=== PATIENT | female | born 1985 | race Two or more races ===

== ENCOUNTER → 2022-01-12 13:30 | Outpatient (BNVA) | payer MEDICAID, SELFPAY | PROVIDERS: Family Provider Family Medicine; Visit Provider Obstetrics & Gynecology | DX: Z12.4 Encounter for screening for malignant neoplasm of cervix (principal) | CPT/HCPCS: 87624 ==

== ENCOUNTER → 2022-02-27 12:50 | Outpatient (BNVA) | payer MEDICAID, SELFPAY | PROVIDERS: Family Provider Family Medicine; Visit Provider Obstetrics & Gynecology | DX: R87.610 Atypical squamous cells of undetermined significance on cytologic smear of cervix (ASC-US) (principal); R87.810 Cervical high risk human papillomavirus (HPV) DNA test positive | CPT/HCPCS: 81025; 88305 ==

== ENCOUNTER 2022-05-07 12:16 | Outpatient (CLI) | payer MEDICAID, SELFPAY ==
[2022-05-07 12:58] LABS: Basophils % 0.8 %; Eosinophils # 0.1 10^3/uL (0.0-0.8); Eosinophils % 2.5 %; Hematocrit 34.1 % (37.0-47.0); Hemoglobin 10.9 g/dL (11.5-15.3); Lymphocytes # 2.1 10^3/uL (0.8-4.8); Lymphocytes % 42.7 %; Mean Corpuscular Hemoglobin 27.7 pg (28.0-34.0); Mean Corpuscular Volume 86.8 fl (81-99); Mean Platelet Volume 9.6 fL (7.4-10.4); Monocytes # 0.3 10^3/uL (0.2-0.9); Monocytes % 6.2 %; Neutrophils # 2.29 10^3/uL (1.8-7.7); Neutrophils % 47.6 %; Nucleated Red Blood Cells % 0 %; Platelet Count 360 10^3/cmm (130-400); Red Blood Count 3.93 10^6/uL (4.1-5.3); Red Cell Distribution Width 13.2 % (12.1-15.1); White Blood Count 4.8 10^3/uL (4.0-10.0)
[2022-05-07 13:12] LABS: Ferritin 11 ng/mL (15-150); Iron 69 ug/dL (37-145); Total Iron Binding Capacity 492 mcg/dl; Unsaturated Iron Binding 423 ug/dL (112-347)
== END 2022-05-07 12:17 | disposition home or self-care (01) ==
LOC: LAB 12:17
PROVIDERS: Visit Provider Obstetrics & Gynecology
DX: D64.9 Anemia, unspecified (principal)
CPT/HCPCS: 36415; 81025; 82728; 83540; 83550; 85025

== ENCOUNTER → 2022-05-16 15:58 | Outpatient (BNVA) | payer MEDICAID, SELFPAY | PROVIDERS: Visit Provider Emergency Medicine | DX: R50.9 Fever, unspecified (principal); J10.1 Influenza due to other identified influenza virus with other respiratory manifestations | CPT/HCPCS: 87400 ==

== ENCOUNTER 2022-08-16 07:00 | Emergency (ER) | payer MEDICAID, SELFPAY ==
[2022-08-16 07:05] VITALS: BP 168/101; PULSE 90; RESP 28; TEMP 37.1; O2SAT 100; BMI 29.6
--- NOTE | 2022-08-16 07:11 | ECG_ITS ---
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 Measurements Intervals [place] Rate: 82 P: 62 SC: 164 QRS: 32 QRSD: 102 T: 38 QT: 358 QTc: 420 Interpretive Statements SINUS RHYTHM POSSIBLE RIGHT VENTRICULAR CONDUCTION DELAY [RSR (QR) IN V1/V2] Compared to ECG 01/26/2017 11:25:27 No significant changes Electronically Signed On 08-16-2022 22:48:30 CDT by Barbara Springer M.D. [id number]
--- NOTE | 2022-08-16 07:17 | XR_ITS ---
WS: [id number] EXAMINATION: XR chest 1V portable [id number] REASON FOR EXAM: sob COMPARISON: 01/26/2017 ORDER DATE: 08/16/2022 7:19 AM TECHNIQUE: A single, portable frontal chest x-ray was obtained. X-RAY FINDINGS: The lungs are clear. Pleural spaces are clear. No pleural effusions or pneumothorax. Cardiomediastinal silhouette is normal. No evidence for pulmonary edema. Soft tissue and osseous structures are unremarkable. No tubes or lines are present. XR/XR chest 1V portable [id number] IMPRESSION: Unremarkable frontal portable chest x-ray.
--- NOTE | 2022-08-16 07:18 | W.ED.SOB ---
HPI - SOB/Dyspnea General: Chief Complaint: Shortness of Breath/Dyspnea Stated Complaint: sob Time Seen by Provider: 08/16/22 07:10 History of Present Illness: HPI Narrative: Patient is a 37-year-old female comes to the ED with shortness of breath. Symptoms started yesterday evening while at work. She was having some nasal congestion and drainage yesterday and the shortness of breath started in the evening. Patient feels like she cannot catch her breath. Her face started feeling a little tingly this morning. She denies any current chest pain. Denies any history of asthma, anxiety or panic attacks. Patient did state that she is always a little stressed. Denies any cough, fevers, nausea/vomiting or bladder symptoms. She endorses having some diarrhea over the past 2 days. Associated symptoms: Deny abdominal pain, chest pain, fever(s), nausea, orthopnea, palpitations or vomiting Review of Systems Const: Denies: fever(s), chills or fatigue Eyes: Denies: change in vision or eye discomfort ENMT: Reports: nasal discharge and nasal congestion; Denies: throat pain or odynophagia Card: Denies: chest pain, palpitations, edema, swelling of feet/ankles, dyspnea on exertion or orthopnea Resp: Reports: dyspnea; Denies: productive cough or non-productive cough GI: Denies: abdominal pain, nausea, vomiting, diarrhea, constipation or hematochezia : Denies: flank pain, dysuria or hematuria Musc: Denies: neck pain, back pain or extremity swelling Skin/Breast: Denies: rash or new lesions Neuro: Denies: headache(s), numbness in extremities or weakness in extremities PFS ED PFSH: Surgical History No pertinent past surgical history Family History Mother Hypertension Grandfather Hypertension maternal Stroke maternal Heart disease maternal Grandmother Breast cancer, Onset Age: 84 maternal Denies family history of Colon cancer Ovarian cancer Diabetes Clotting disorder Hyperlipidemia Anesthesia complication Bleeding disorder Uterine cancer Thyroid condition Social History Smoking and tobacco status: never smoked Quit status (tobacco): has quit using tobacco Year quit tobacco: 2019 Alcohol intake: never Physical Exam Const: COMMON NORMALS: patient oriented x3 and alert GENERAL APPEARANCE: cooperative, anxious and other (Patient is tearful) HENMT: COMMON NORMALS: normocephalic HEAD & SCALP: normocephalic MOUTH: Normal oral and palatal mucosa present THROAT: posterior oropharynx normal and uvula midline Neck/C-Spine: COMMON NORMALS: supple GENERAL: Yes normal visual inspection Resp: COMMON NORMALS: No retractions, No use of accessory muscles and clear to auscultation bilaterally EFFORT & INSPECTION: Yes tachypneic, No stridor, No Actively coughing and No audible wheezes AUSCULTATION: clear to auscultation bilaterally Cardio: COMMON NORMALS: regular rate, regular rhythm, S1 normal heart sound present, S2 normal heart sound present, No gallops present (Cardio), No clicks present (Cardio), No murmurs present (Cardio) and Peripheral pulses 2+ throughout RATE: regular rate RHYTHM: regular rhythm HEART SOUNDS: S1 normal heart sound present and S2 normal heart sound present PERIPHERAL PULSES: Peripheral pulses 2+ throughout GI: COMMON NORMALS: Normal to inspection, nondistended, normoactive bowel sounds present, Soft to palpation, non-tender and no masses PALPATION: Yes Soft to palpation : COMMON NORMALS: Yes no CVA tenderness BLADDER/KIDNEY EXAM: Yes no CVA tenderness Back/Pelvis: COMMON NORMALS: no CVA tenderness Extremity: COMMON NORMALS: normal to inspection Neuro: COMMON NORMALS: patient oriented x3 SENSORIUM/ORIENTATION: Yes alert GAIT: Yes Normal gait present Skin: GENERAL SKIN EXAM: dry skin Course Reevaluation(s): Reevaluation #1: I went back in to check on patient and to let her know about lab results. She told me now that her shortness of breath feels more like throat tightening. Denies any history of any food allergies or anaphylaxis. Time: 08:30 Vital Signs: Vital signs: Vital Signs Temperature 98.7 F 08/16/22 07:05 Pulse Rate 96 08/16/22 10:45 Respiratory Rate 16 08/16/22 10:45 Blood Pressure 143/81 08/16/22 10:45 Pulse Oximetry 99 08/16/22 10:45 Oxygen Delivery Me thod 08/16/22 09:13 MDM - SOB/Dyspnea Medical Decision Making Patient is a 37-year-old female comes to the ED with shortness of breath. Symptoms started yesterday evening while at work. She was having some nasal congestion and drainage yesterday and the shortness of breath started in the evening. Patient feels like she cannot catch her breath. Respirations 28/min but rest of her vitals are stable on heart rate 90 and O2 sat 100% on room air. Patient appears to be hyperventilating. Her lungs are clear to auscultation bilaterally and rest of her exam is benign. Labs are all unremarkable. Troponin negative. EKG showed normal sinus rhythm with no ST segment elevation or depression seen. I went in to speak with patient about lab results and chest x-ray and she informed me that her shortness of breath is more of a throat tightening feeling. Patient was given IM Solu-Medrol, Benadryl and epi. Throat tightening improved. Patient was stable for discharge home. Patient's dyspnea is likely due to seasonal allergies versus allergic reaction. She was sent home with a prescription for prednisone and told to follow-up with her PCP in the next week for reevaluation. Return ED precautions given. Patient understood and agreed with plan. Lab Data I reviewed the patient's lab results. 08/16/22 07:39 08/16/22 07:39 Labs/Radiology: Radiology Impressions Chest X-Ray 08/16/22 07:17 IMPRESSION: Unremarkable frontal portable chest x-ray. Laboratory Results WBC 4.5 10^3/uL (4.0-10.0) 08/16/22 07:39 RBC 4.00 10^6/uL (4.1-5.3) L 08/16/22 07:39 Hgb 11.6 g/dL (11.5-15.3) 08/16/22 07:39 Hct 35.0 % (37.0-47.0) L 08/16/22 07:39 MCV 87.5 fl (81-99) 08/16/22 07:39 MCH 29.0 pg (28.0-34.0) 08/16/22 07:39 MCHC 33.1 g/dL (30.0-36.0) 08/16/22 07:39 RDW 12.7 % (12.1-15.1) 08/16/22 07:39 Plt Count 368 10^3/cmm (130-400) 08/16/22 07:39 MPV 9.1 fL (7.4-10.4) 08/16/22 07:39 Neut % (Auto) 50.7 % 08/16/22 07:39 Lymph % (Auto) 37.8 % 08/16/22 07:39 [place] % (Auto) 6.3 % 08/16/22 07:39 Eos % (Auto) 4.3 % 08/16/22 07:39 Baso % (Auto) 0.9 % 08/16/22 07:39 Neut # (Auto) 2.27 10^3/uL (1.8-7.7) 08/16/22 07:39 Lymph # (Auto) 1.7 10^3/uL (0.8-4.8) 08/16/22 07:39 [place] # (Auto) 0.3 10^3/uL (0.2-0.9) 08/16/22 07:39 Eos # (Auto) 0.2 10^3/uL (0.0-0.8) 08/16/22 07:39 Baso # (Auto) 0.0 10^3/uL (0.0-0.1) 08/16/22 07:39 Nucleated RBC % (auto) 0 % 08/16/22 07:39 Nucleated RBCs # 0.0 /100WBC 08/16/22 07:39 Sodium 141 mmol/L (136-145) 08/16/22 07:39 Potassium 4.0 mmol/L (3.5-5.1) 08/16/22 07:39 Chloride 105 mmol/L (98-107) 08/16/22 07:39 Carbon Dioxide 24 mmol/L (22-29) 08/16/22 07:39 Anion Gap 16.0 (5-19) 08/16/22 07:39 BUN 9 mg/dL (6-20) 08/16/22 07:39 Creatinine 0.8 mg/dL (0.5-0.9) 08/16/22 07:39 GFR Calculation 97.7 mL/min (90-130) 08/16/22 07:39 Glucose 89 mg/dL (65-115) 08/16/22 07:39 Calculated Osmolality 290 mOsm/kg (285-295) 08/16/22 07:39 Calcium 9.3 mg/dL (8.5-10.5) 08/16/22 07:39 Total Bilirubin 0.4 mg/dL (0.15-1.2) 08/16/22 07:39 AST 14 U/L (0-32) 08/16/22 07:39 ALT 9 U/L (0-33) 08/16/22 07:39 Alkaline Phosphatase 64 U/L (35-105) 08/16/22 07:39 Troponin T Baseline 6 ng/L (0-10) 08/16/22 07:39 Troponin T 120 Minute 6.00 ng/L (0-10) 08/16/22 09:52 Delta Troponin T 0 ABS# (0-10) 08/16/22 09:52 Total Protein 7.2 g/dL (6.6-8.7) 08/16/22 07:39 Albumin 4.2 g/dL (3.5-5.2) 08/16/22 07:39 Globulin 3.0 g/dL (1.3-4.6) 08/16/22 07:39 HCG, Qual Negative (Negative) 08/16/22 07:39 Influenza Type A Ag negative (Negative) 08/16/22 07:32 Influenza Type B Ag negative (Negative) 08/16/22 07:32 SARS-CoV-2 Ag (Rapid) negative (Negative) 08/16/22 07:32 EKG Data EKG 1: EKG Interpretation Date: 08/16/22 Interpretation: Sinus rhythm, 82 bpm, no ST segment elevation or depression seen. Discharge Plan Discharge Patient Disposition: Home Clinical Impression: Dyspnea Qualifiers: Dyspnea type: unspecified Qualified Code(s): R06.00 - Dyspnea, unspecified Condition: Stable Prescriptions: New prednisone 20 mg tablet 20 mg PO BID 3 Days Qty: 6 0RF No Action Nexplanon 68 mg implant See Rx Instructions .ROUTE .COMPLEX Rx Instructions: subdermally as directed ibuprofen 600 mg tablet 600 mg PO Q8H PRN (Reason: pain) Qty: 30 0RF ciclopirox 0.77 % cream 1 applic topical BID 28 Days Qty: 30 0RF fluticasone propionate [Flonase Allergy Relief] 50 mcg/actuation spray,suspension 1 spray intranasal BID Qty: 16 0RF Rx Instructions: administer into each nostril iron 325 mg (65 mg iron) Tablet 325 mg PO DAILY Discharge Orders: Discharge ED (Routine); Ordered 08/16/22 Ordered By: Jae Mohan Referrals: Shawn Sutherland MD [Primary Care Provider] - Discharge Diet: Regular Discharge Activity: Increase activity as tolerated Activity Restrictions/Additional Instructions: Follow-up with medical provider as directed in the next 3 to 5 days for reevaluation. Take medications as prescribed. You can start taking your prescribed prednisone tomorrow since she received steroid shot here in the ED today. Return to the ER or your medical provider if condition worsens. Please read and understand discharge instructions. Thank you for choosing [facility] for your healthcare needs today. Please realize this is an emergency room and that we are providing you with a medical screening exam and this may not be complete and all inclusive of all the testing and or work up that you may need to determine your ailment or severity of your illness. It is very important that you follow up as instructed or that you return to the Emergency Department should you have concerns or if your condition changes or worsens in any way. Coding Level of Care Code ED Self Contained Behavior Unit Teacher for Andrae Gonzalez
[2022-08-16] MEDS: ipratropium-albuterol 3 mL Neb INHALATION (07:31)
[2022-08-16 07:35] VITALS: PULSE 80; RESP 16; O2SAT 100
[2022-08-16 07:42] VITALS: PULSE 81; RESP 16; O2SAT 100
[2022-08-16 07:51] LABS: Basophils % 0.9 %; Eosinophils # 0.2 10^3/uL (0.0-0.8); Eosinophils % 4.3 %; Hemoglobin 11.6 g/dL (11.5-15.3); Lymphocytes # 1.7 10^3/uL (0.8-4.8); Lymphocytes % 37.8 %; Mean Corpuscular HGB Conc 33.1 g/dL (30.0-36.0); Mean Corpuscular Volume 87.5 fl (81-99); Mean Platelet Volume 9.1 fL (7.4-10.4); Monocytes # 0.3 10^3/uL (0.2-0.9); Monocytes % 6.3 %; Neutrophils # 2.27 10^3/uL (1.8-7.7); Neutrophils % 50.7 %; Nucleated Red Blood Cells % 0 %; Platelet Count 368 10^3/cmm (130-400); Red Cell Distribution Width 12.7 % (12.1-15.1); White Blood Count 4.5 10^3/uL (4.0-10.0)
[2022-08-16 08:11] LABS: Troponin(5th) Baseline 6 ng/L (0-10)
[2022-08-16 08:12] LABS: Alanine Aminotransferase 9 U/L (0-33); Albumin Level 4.2 g/dL (3.5-5.2); Alkaline Phosphatase 64 U/L (35-105); Aspartate Amino Transferase 14 U/L (0-32); Blood Urea Nitrogen 9 mg/dL (6-20); Calcium 9.3 mg/dL (8.5-10.5); Carbon Dioxide 24 mmol/L (22-29); Chloride 105 mmol/L (98-107); Glomerular Filtration Rate 97.7 mL/min (90-130); Glucose 89 mg/dL (65-115); Osmolality Calculated 290 mOsm/kg (285-295); Sodium 141 mmol/L (136-145); Total Bilirubin 0.4 mg/dL (0.15-1.2); Total Protein 7.2 g/dL (6.6-8.7)
[2022-08-16 08:12] LABS: Influenza A by IFA negative (Negative); Influenza B by IFA negative (Negative); SARS Covid-2 Antigen negative (Negative)
[2022-08-16 08:15] LABS: HCG, Serum Qual Negative (Negative)
[2022-08-16 09:13] VITALS: BP 165/83; PULSE 85; O2SAT 100
[2022-08-16] MEDS: diphenhydrAMINE 25 mg Capsule PO (09:13)
--- NOTE | 2022-08-16 09:20 | ECG_ITS ---
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 Measurements Intervals [place] Rate: 70 P: 63 CT: 166 QRS: 33 QRSD: 102 T: 34 QT: 366 QTc: 397 Interpretive Statements SINUS RHYTHM POSSIBLE RIGHT VENTRICULAR CONDUCTION DELAY [RSR (QR) IN V1/V2] Compared to ECG 08/16/2022 07:11:08 No significant changes Electronically Signed On 08-17-2022 23:07:36 CDT by Barbara Springer M.D. [id number]
[2022-08-16] MEDS: EPINEPHrine 1 mg/mL INJ 0.3 MG IM (10:01)
[2022-08-16 10:22] LABS: Troponin 5 2HR Delta 0 ABS# (0-10)
[2022-08-16 10:30] VITALS: BP 143/81; PULSE 96; RESP 16; O2SAT 99
[2022-08-16 10:45] VITALS: BP 143/81; PULSE 96; RESP 16; O2SAT 99
== END 2022-08-16 10:46 | disposition home or self-care (01) ==
PROVIDERS: Emergency Provider Physician Assistant; PCP Obstetrics & Gynecology
DX: R06.00 Dyspnea, unspecified (principal)
CPT/HCPCS: 36415; 71045; 80053; 84484; 84703; 85025; 87426; 87804; 93005; 94640; 96372; 99285; J0171; J2930

== ENCOUNTER → 2022-09-27 08:20 | Outpatient (BNVA) | payer MEDICAID, SELFPAY | PROVIDERS: PCP Family Medicine Adult Medicine; Visit Provider Family Medicine Adult Medicine | DX: R68.89 Other general symptoms and signs (principal); J30.9 Allergic rhinitis, unspecified; R03.0 Elevated blood-pressure reading, without diagnosis of hypertension; Z68.30 Body mass index [BMI] 30.0-30.9, adult | CPT/HCPCS: 84443 ==

== ENCOUNTER → 2022-11-14 13:46 | Outpatient (BNVA) | payer MEDICAID, SELFPAY | PROVIDERS: PCP Family Medicine Adult Medicine; Visit Provider Family Medicine Adult Medicine | DX: E03.9 Hypothyroidism, unspecified (principal) | CPT/HCPCS: 84443 ==

== ENCOUNTER → 2023-02-15 13:09 | Outpatient (BNVA) | payer MEDICAID, SELFPAY | PROVIDERS: PCP Family Medicine Adult Medicine; Visit Provider Family Medicine Adult Medicine | DX: E03.9 Hypothyroidism, unspecified (principal); I10 Essential (primary) hypertension | CPT/HCPCS: 84443 ==

== ENCOUNTER → 2023-03-14 10:00 | Outpatient (BNVA) | payer MEDICAID, SELFPAY | PROVIDERS: PCP Family Medicine Adult Medicine; Visit Provider Obstetrics & Gynecology | DX: Z12.4 Encounter for screening for malignant neoplasm of cervix (principal) | CPT/HCPCS: 87624 ==

== ENCOUNTER → 2023-03-28 07:24 | Outpatient (BNVA) | payer MEDICAID, SELFPAY | PROVIDERS: PCP Family Medicine Adult Medicine; Visit Provider Nurse Practitioner Family | DX: R09.89 Other specified symptoms and signs involving the circulatory and respiratory systems (principal) | CPT/HCPCS: 87426 ==

== ENCOUNTER → 2023-04-17 12:53 | Outpatient (BNVA) | payer MEDICAID, SELFPAY | PROVIDERS: PCP Family Medicine Adult Medicine; Visit Provider Emergency Medicine | DX: J06.9 Acute upper respiratory infection, unspecified (principal); R51.9 Headache, unspecified; G43.909 Migraine, unspecified, not intractable, without status migrainosus | CPT/HCPCS: 87426 ==

== ENCOUNTER → 2023-11-08 13:16 | Outpatient (BNVA) | payer MEDICAID, SELFPAY | PROVIDERS: PCP Family Medicine Adult Medicine; Visit Provider Family Medicine Adult Medicine | DX: E03.9 Hypothyroidism, unspecified (principal); Z68.30 Body mass index [BMI] 30.0-30.9, adult; I10 Essential (primary) hypertension | CPT/HCPCS: 80048; 84443 ==

== ENCOUNTER → 2023-11-20 15:26 | Outpatient (BNVA) | payer MEDICAID, SELFPAY | PROVIDERS: PCP Family Medicine Adult Medicine; Visit Provider Registered Nurse Neonatal Intensive Care | DX: M54.9 Dorsalgia, unspecified (principal); R52 Pain, unspecified; M54.50 Low back pain, unspecified | CPT/HCPCS: 72100; J1885 ==

== ENCOUNTER 2023-12-18 10:12 | Emergency (ER) | payer MEDICAID, SELFPAY ==
[2023-12-18 10:19] VITALS: BP 141/93; PULSE 87; RESP 24; TEMP 36.7; O2SAT 100
--- NOTE | 2023-12-18 10:40 | XR_ITS ---
WS: [id number] PORTABLE CHEST HISTORY: cp COMPARISON: 08/16/2022 Lungs are clear and well expanded. No pleural effusion or pneumothorax. Cardiac size: Normal. Mediastinum/Aorta: Normal mediastinum. No osseous abnormality seen. XR/XR chest 1V portable [id number] IMPRESSION: Unremarkable portable chest.
--- NOTE | 2023-12-18 10:40 | ECG_ITS ---
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 Measurements Intervals [place] Rate: 73 P: 146 NM: 160 QRS: 3 QRSD: 101 T: 0 QT: 361 QTc: 400 Interpretive Statements SINUS RHYTHM POSSIBLE LEFT ATRIAL ENLARGEMENT [-0.1mV P-WAVE IN V1/V2] INCOMPLETE RIGHT BUNDLE BRANCH BLOCK [90+ ms QRS DURATION, TERMINAL R IN V1/V2, 40+ ms S IN I/aVL/V4/V5/V6] POSSIBLE ANTERIOR MYOCARDIAL INFARCTION , PROBABLY OLD [30 ms Q WAVE IN V3/V4, OR R < 0.2 mV IN V4] Compared to ECG 06/13/2023 00:21:27 Incomplete right bundle-branch block now present Myocardial infarct finding now present Electronically Signed On 12-18-2023 15:56:54 CDT by Drew Iyer M.D. [id number]
--- NOTE | 2023-12-18 10:46 | ED_ITS ---
HPI - Extremity Problem 2 General: Chief complaint: Extremity Injury, Upper Stated complaint: left arm pain Time Seen by Provider: 12/18/23 10:25 Source: patient Mode of arrival: ambulatory Limitations: no limitations History of Present Illness: 38-year-old female states she woke this morning and she is having severe left- sided shoulder pain that radiated down her arm states it is worse with palpation and movement. She does not remember any injury states she did well bleeding yesterday. States she had some pain going across her chest as well she denies any cough or fever. Associated symptoms: Reports chest pain; Deny fever(s) or rash Review of Systems 2 Const: Denies: fever(s), chills, body aches or change in appetite ENMT: Denies: throat pain or dental pain Card: Reports: chest pain Resp: Denies: dyspnea GI: Denies: abdominal pain, nausea, vomiting or diarrhea Musc: Reports: neck pain and extremity pain; Denies: back pain Skin/Breast: Denies: rash Neuro: Denies: headache(s) PFSH ED 2 PFSH: Medical History Fatigue due to depression Breakthrough bleeding on Nexplanon Hypertension Hypothyroidism (acquired) BMI 30.0-30.9,adult Asthma due to seasonal allergies Allergic rhinitis due to allergen Surgical History No history of previous surgery No pertinent past surgical history Family History Mother Hypertension Grandfather Hypertension maternal Stroke maternal Heart disease maternal Grandmother Breast cancer, Onset Age: 84 maternal Denies family history of Colon cancer Ovarian cancer Diabetes Clotting disorder Hyperlipidemia Anesthesia complication Bleeding disorder Uterine cancer Thyroid disease Social History Smoking and tobacco/nicotine status: former use of tobacco/nicotine Quit status (tobacco/nicotine): has quit using Year quit tobacco: 2020 Alcohol intake: never Substance/Drug Use: never Physical Exam 2 Const: COMMON NORMALS: no acute distress, patient oriented x3 and healthy appearing HENMT: COMMON NORMALS: normocephalic and atraumatic HEAD & SCALP: n ormocephalic and atraumatic Neck/C-Spine: OTHER: Tenderness noted along left neck and shoulder no obvious deformities distal pulses sensation to left arm is normal Chest: COMMONS NORMALS: normal inspection of the chest and normal palpation of entire chest wall Resp: COMMON NORMALS: normal respiratory effort, No retractions, No use of accessory muscles and clear to auscultation bilaterally AUSCULTATION: clear to auscultation bilaterally Cardio: COMMON NORMALS: regular rate, regular rhythm and No murmurs present (Cardio) RATE: regular rate RHYTHM: regular rhythm Extremity: COMMON NORMALS: normal to inspection and full ROM Neuro: COMMON NORMALS: patient oriented x3, moves all extremities and no focal motor deficits Psych: COMMON NORMALS: mental status grossly normal, Normal thought process present and cooperative THOUGHT PROCESS: Normal thought process present Skin: COMMON NORMALS: no rashes or lesions noted and no wounds GENERAL SKIN EXAM: no rashes or lesions noted Course 2 Vital Signs: Vital signs: Vital Signs Temperature 98.1 F 12/18/23 10:19 Pulse Rate 87 12/18/23 10:19 Respiratory Rate 24 H 12/18/23 10:19 Blood Pressure 141/93 12/18/23 10:19 Pulse Oximetry 100 12/18/23 10:19 MDM - Extremity (Nontraumatic) Medical Decision Making Patient presents here with left neck pain is likely muscle strain from weed eating her exam here is benign blood work EKG x-ray is normal she has no signs of carotid dissection. She feels improved here she stable for discharge follow- up with her PCP return if worsening. Medical Records I reviewed the patient's medical records. Lab Data I reviewed the patient's lab results. 12/18/23 11:03 12/18/23 11:03 Radiology Impressions Chest X-Ray 12/18/23 10:40 IMPRESSION: Unremarkable portable chest. Shoulder X-Ray 12/18/23 10:46 IMPRESSION: Normal LEFT shoulder. Laboratory Results WBC 5.13 10^3/uL (3.29-11.43) 12/18/23 11:03 RBC 3.85 10^6/uL (3.85-5.65) 12/18/23 11:03 Hgb 10.70 g/dL (11.27-16.99) L 12/18/23 11:03 Hct 33.0 % (36-47) L 12/18/23 11:03 MCV 85.7 fl (85-98) 12/18/23 11:03 MCH 27.8 pg (27-33) 12/18/23 11:03 MCHC 32.4 g/dL (30-55) 12/18/23 11:03 RDW 12.6 % (12.1-15.1) 12/18/23 11:03 Plt Count 393 10^3/cmm (157-399) 12/18/23 11:03 MPV 9.2 fL (7.4-10.4) 12/18/23 11:03 Neut % (Auto) 50.8 % 12/18/23 11:03 Lymph % (Auto) 39.4 % 12/18/23 11:03 [place] % (Auto) 7.0 % 12/18/23 11:03 Eos % (Auto) 1.6 % 12/18/23 11:03 Baso % (Auto) 1.0 % 12/18/23 11:03 Neut # (Auto) 2.61 10^3/uL (1.8-7.7) 12/18/23 11:03 Lymph # (Auto) 2.0 10^3/uL (0.8-4.8) 12/18/23 11:03 [place] # (Auto) 0.4 10^3/uL (0.2-0.9) 12/18/23 11:03 Eos # (Auto) 0.1 10^3/uL (0.0-0.8) 12/18/23 11:03 Baso # (Auto) 0.1 10^3/uL (0.0-0.1) 12/18/23 11:03 Nucleated RBC % (auto) 0 % 12/18/23 11:03 Nucleated RBCs # 0.0 /100WBC 12/18/23 11:03 Sodium 138 mmol/L (136-145) 12/18/23 11:03 Potassium 4.3 mmol/L (3.5-5.1) 12/18/23 11:03 Chloride 102 mmol/L (98-107) 12/18/23 11:03 Carbon Dioxide 24 mmol/L (22-29) 12/18/23 11:03 Anion Gap 16.3 (5-19) 12/18/23 11:03 BUN 9 mg/dL (6-20) 12/18/23 11:03 Creatinine 0.8 mg/dL (0.5-0.9) 12/18/23 11:03 GFR Calculation 80.3 mL/min (90-130) L 12/18/23 11:03 Glucose 88 mg/dL (65-115) 12/18/23 11:03 Calculated Osmolality 284 mOsm/kg (285-295) L 12/18/23 11:03 Calcium 8.9 mg/dL (8.5-10.5) 12/18/23 11:03 Total Bilirubin 0.4 mg/dL (0.15-1.2) 12/18/23 11:03 AST 13 U/L (0-32) 12/18/23 11:03 ALT 9 U/L (0-33) 12/18/23 11:03 Alkaline Phosphatase 80 U/L (35-105) 12/18/23 11:03 Troponin T Baseline < 6 ng/L (0-10) 12/18/23 11:03 Total Protein 7.2 g/dL (6.6-8.7) 12/18/23 11:03 Albumin 4.2 g/dL (3.5-5.2) 12/18/23 11:03 Globulin 3.0 g/dL (1.3-4.6) 12/18/23 11:03 All radiology interpretation(s) finalized by discharge Discharge Plan Discharge Patient Disposition: Home Clinical Impression: Neck pain on left side Condition: Stable Prescriptions: New hydrocodone-acetaminophen 5-325 mg tablet 1 tab PO Q6H PRN (Reason: pain) Qty: 14 0RF methocarbamol 750 mg tablet 750 mg PO Q6H PRN (Reason: spasms) Qty: 20 0RF Naprosyn 500 mg tablet 500 mg PO BID PRN (Reason: pain) Qty: 20 0RF No Action azelastine 137 mcg (0.1 %) aerosol,spray 1 spray intranasal BID Rx Instructions: administer into each nostril clonidine HCl 0.1 mg tablet 0.1 mg PO .q 12 hr PRN (Reason: hypertensive emergency) Qty: 30 1RF Rx Instructions: for high blood pressure/SCHMITT sys >160 lisinopril-hydrochlorothiazide 10-12.5 mg tablet 1 tab PO DAILY Qty: 30 5RF cyclobenzaprine 5 mg tablet 5 mg PO TID PRN (Reason: muscle spasm) Qty: 15 0RF diphenhydramine HCl 25 mg capsule 25 mg PO .q hs PRN (Reason: allergy symptoms) Qty: 30 3RF Rx Instructions: Can also take every 6 hrs through the day for wheezing or allergy symptoms. ondansetron 8 mg tablet,disintegrating 8 mg PO Q8H PRN (Reason: nausea and vomiting) 5 Days Qty: 15 0RF ibuprofen 800 mg tablet 800 mg PO TID Qty: 90 0RF levothyroxine 25 mcg tablet 25 mcg PO DAILY Qty: 90 1RF Rx Instructions: Take one tablet 1 hour before breakfast or other medications. albuterol sulfate [Ventolin HFA] 90 mcg/actuation HFA aerosol inhaler See Rx Instructions .ROUTE .COMPLEX Qty: 18 0RF Dose Instruction: INHALE 2 PUFFS BY MOUTH EVERY 6 HOURS NEEDED FOR SHORTNESS OF BREATH AND FOR WHEEZING Rx Instructions: INHALE 2 PUFFS BY MOUTH EVERY 6 HOURS NEEDED FOR SHORTNESS OF BREATH AND FOR WHEEZING miconazole nitrate 2 % cream 1 applic topical BID Qty: 42.5 1RF fluticasone propionate 50 mcg/actuation spray,suspension See Rx Instructions .ROUTE .COMPLEX Qty: 16 0RF Dose Instruction: Use 1 spray(s) in each nostril twice daily Rx Instructions: Use 1 spray(s) in each nostril twice daily levocetirizine 5 mg tablet 5 mg PO DAILY Qty: 90 3RF norgestimate-ethinyl estradiol [Sprintec (28)] 0.25-35 mg-mcg tablet See Rx Instructions .ROUTE .COMPLEX Qty: 84 0RF Dose Instruction: Take 1 tablet by mouth once daily Rx Instructions: Take 1 tablet by mouth once daily bupropion HCl 150 mg tablet sustained-release 12 hr 150 mg PO QAM Qty: 30 1RF iron 325 mg (65 mg iron) Tablet 325 mg PO DAILY Discharge Orders: Discharge ED (Routine); Ordered 12/18/23 Ordered By: Tyshawn Cristina Referrals: Tomy Evans MD [Primary Care Provider] - 4-7 days Discharge Diet: Advance as tolerated Discharge Activity: Resume usual activity Patient Instructions: Cervical Strain (ED) Coding Level of Care Code ED Infectious Disease Technician for Chg Carlos
--- NOTE | 2023-12-18 10:46 | XR_ITS ---
WS: [id number] LEFT SHOULDER: 3 VIEW(S) TECHNIQUE: Internal and external rotation with Y view. HISTORY: pain COMPARISON: None available. No fracture or dislocation or soft tissue abnormality. Glenohumeral and AC joints are unremarkable. XR/XR shoulder LT min 2V* [id number] IMPRESSION: Normal LEFT shoulder.
[2023-12-18] MEDS: ondansetron 2 mg/ML SDV 2 mL 4 MG IVP (10:53)
[2023-12-18] MEDS: morphine 4 mg/mL SDV 1 mL IVP (10:55)
[2023-12-18 11:12] LABS: Basophils # 0.1 10^3/uL (0.0-0.1); Eosinophils # 0.1 10^3/uL (0.0-0.8); Eosinophils % 1.6 %; Lymphocytes % 39.4 %; Mean Corpuscular HGB Conc 32.4 g/dL (30-55); Mean Corpuscular Hemoglobin 27.8 pg (27-33); Mean Corpuscular Volume 85.7 fl (85-98); Mean Platelet Volume 9.2 fL (7.4-10.4); Monocytes # 0.4 10^3/uL (0.2-0.9); Neutrophils # 2.61 10^3/uL (1.8-7.7); Neutrophils % 50.8 %; Nucleated Red Blood Cells % 0 %; Platelet Count 393 10^3/cmm (157-399); Red Blood Count 3.85 10^6/uL (3.85-5.65); Red Cell Distribution Width 12.6 % (12.1-15.1); White Blood Count 5.13 10^3/uL (3.29-11.43)
[2023-12-18 11:27] LABS: Troponin(5th) Baseline < 6 ng/L (0-10)
[2023-12-18 11:29] LABS: Alanine Aminotransferase 9 U/L (0-33); Albumin Level 4.2 g/dL (3.5-5.2); Alkaline Phosphatase 80 U/L (35-105); Anion Gap 16.3 (5-19); Aspartate Amino Transferase 13 U/L (0-32); Blood Urea Nitrogen 9 mg/dL (6-20); Calcium 8.9 mg/dL (8.5-10.5); Carbon Dioxide 24 mmol/L (22-29); Chloride 102 mmol/L (98-107); Creatinine Clr Calc Pharmacy 110.4179; Glomerular Filtration Rate 80.3 mL/min (90-130); Glucose 88 mg/dL (65-115); Osmolality Calculated 284 mOsm/kg (285-295); Potassium 4.3 mmol/L (3.5-5.1); Sodium 138 mmol/L (136-145); Total Bilirubin 0.4 mg/dL (0.15-1.2); Total Protein 7.2 g/dL (6.6-8.7)
[2023-12-18] MEDS: LORazepam 2 mg/mL INJ 1 mL 0.5 MG IVP (11:31)
== END 2023-12-18 12:18 | disposition home or self-care (01) ==
PROVIDERS: Emergency Provider Emergency Medicine; PCP Family Medicine Adult Medicine
DX: M54.2 Cervicalgia (principal); Z87.891 Personal history of nicotine dependence; I10 Essential (primary) hypertension
CPT/HCPCS: 71045; 73030; 80053; 84484; 85025; 93005; 96374; 96375; 99285; J2060; J2270; J2405

== ENCOUNTER → 2024-09-09 10:22 | Outpatient (BNVA) | payer MEDICAID, SELFPAY | PROVIDERS: PCP Family Medicine Adult Medicine; Visit Provider Nurse Practitioner Women's Health | DX: Z87.42 Personal history of other diseases of the female genital tract (principal) | CPT/HCPCS: 87624 ==

== ENCOUNTER → 2024-11-02 15:28 | Outpatient (BNVA) | payer MEDICAID, SELFPAY | PROVIDERS: PCP Family Medicine Adult Medicine; Visit Provider Obstetrics & Gynecology | DX: R87.612 Low grade squamous intraepithelial lesion on cytologic smear of cervix (LGSIL) (principal) | CPT/HCPCS: 88305 ==

== ENCOUNTER 2024-12-17 17:44 | Emergency (ER) | payer MEDICAID, SELFPAY ==
--- NOTE | 2024-12-17 17:51 | ECG_ITS ---
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
[2024-12-17 17:53] VITALS: BP 119/78; PULSE 88; RESP 16; TEMP 36.7; O2SAT 99; BMI 31.3
--- NOTE | 2024-12-17 18:03 | XRR_ITS ---
PROCEDURE INFORMATION: Exam: XR Chest Exam date and time: 12/17/2024 7:29 PM Age: 39 years old Clinical indication: Pain; Chest pressure; Additional info: Cp TECHNIQUE: Imaging protocol: Radiologic exam of the chest. Views: 1 view. COMPARISON: CR XR chest 1V portable [id number] 12/18/2023 11:01 AM FINDINGS: Lungs: Lungs are clear. Pleural spaces: There is no pleural effusion or pneumothorax. Heart/Mediastinum: Cardiomediastinal contours are unremarkable. Bones/joints: Bones are unremarkable. XR/XR chest 1V portable [id number] IMPRESSION: No acute findings.
--- NOTE | 2024-12-17 18:22 | W.ED.CHESTPA ---
HPI - Chest Pain General: Chief Complaint: Chest Pain Stated Complaint: cp Time Seen by Provider: 12/17/24 18:01 History of Present Illness: Mary Pedro is a 39-year-old female who presents to the emergency department with complaints of intermittent chest pain and shortness of breath that started on Saturday. She describes the pain as sternal and heavy. It is only radiated 1 time and that was up into the left chest. She denies any syncope or near syncope Denies palpitations Denies fevers or chills Denies cough or congestion. She reports that the pain is not made worse or better by anything. It is not reproducible. Related Data Home Medications ?Medication ?Instructions ?Recorded ?Confirmed ferrous sulfate 325 mg (65 mg 325 mg PO DAILY 08/16/22 11/21/24 iron) tablet (iron) azelastine 137 mcg (0.1 %) nasal 1 spray intranasal BID 09/27/22 11/21/24 spray lisinopril 20 mg tablet 20 mg PO DAILY 09/09/24 11/21/24 ascorbic acid (vitamin C) 500 mg mg PO 09/15/24 11/21/24 capsule drospirenone 3 mg-estetrol 14.2 mg See Rx Instructions PO .COMPLEX 09/15/24 11/21/24 (28) tablet (Nextstellis) Previous Rx's ?Medication ?Instructions ?Recorded ondansetron 8 mg disintegrating 8 mg PO Q8H PRN nausea and 04/17/23 tablet vomiting 5 days #15 tabs Ventolin HFA 90 mcg/actuation See Rx Instructions .Route 07/31/23 aerosol inhaler (albuterol sulfate) .COMPLEX #18 grams levocetirizine 5 mg tablet 5 mg PO DAILY #90 tabs 10/30/23 hydrocodone 5 mg-acetaminophen 325 1 tab PO Q6H PRN pain #14 tabs 12/18/23 mg tablet naproxen 500 mg tablet (Naprosyn) 500 mg PO BID PRN pain #20 tabs 12/18/23 fluticasone propionate 50 See Rx Instructions .Route 07/02/24 mcg/actuation nasal .COMPLEX #16 grams spray,suspension levothyroxine 25 mcg tablet See Rx Instructions .Route 07/13/24 .COMPLEX #30 tabs drospirenone 3 mg-estetrol 14.2 mg See Rx Instructions PO .COMPLEX 09/09/24 (28) tablet (Nextstellis) #28 tabs estradiol 0.01% (0.1 mg/gram) 1 g vaginal DAILY #42.5 grams 09/09/24 vaginal cream Allergies Allergy/AdvReac Type Severity Reaction Status Date / Time grass pollen Allergy Intermediate rash, itch Verified 09/23/24 08:02 animal dander Allergy ALGY-Difficulty Verified 09/23/24 08:02 Breathing tree and shrub pollen Allergy ALGY-Difficulty Verified 09/23/24 08:02 Breathing Review of Systems General: Reports: 10 or more systems reviewed and unremarkable except in HPI and below PFSH ED PFSH: Medical History (Updated 12/17/24 @ 21:31 by KAPIL Doe) Atypical squamous cell changes of undetermined significance (ASCUS) on cervical cytology with positive high risk human papilloma virus (HPV) ASCUS, HPV E6/E7+ Hx of abnormal cervical Pap smear LSIL, HPV E6/E7+ ; did not get colposcopy Fatigue due to depression Breakthrough bleeding on Nexplanon Hypertension Hypothyroidism (acquired) BMI 30.0-30.9,adult Asthma due to seasonal allergies Allergic rhinitis due to allergen Surgical History History of colposcopy PAP: ASCUS HPV E6/E7+, no malignancy or dysplasia No history of previous surgery No pertinent past surgical history Family History Mother Hypertension Grandfather Hypertension maternal Stroke maternal Heart disease maternal Grandmother Breast cancer, Onset Age: 84 maternal Denies family history of Colon cancer Ovarian cancer Diabetes Clotting disorder Hyperlipidemia Anesthesia complication Bleeding disorder Uterine cancer Thyroid disease Social History Smoking and tobacco/nicotine status: never used tobacco/nicotine Quit status (tobacco/nicotine): has quit using Year quit tobacco: 2020 Alcohol intake: never Substance/Drug Use: never Physical Exam Const: COMMON NORMALS: no acute distress, patient oriented x3 and alert GENERAL APPEARANCE: cooperative ORIENTATION/CONSCIOUSNESS: Yes awake, Yes oriented to person, Yes oriented to place and Yes oriented to time HENMT: COMMON NORMALS: normocephalic and atraumatic HEAD & SCALP: normocephalic and atraumatic FACE & SINUS: normal facial exam MOUTH: Normal oral and palatal mucosa present THROAT: posterior oropharynx normal Eye: COMMON NORMALS: Equal, round and reactive pupils present, EOMs intact bilaterally, conjunctivae normal and no scleral icterus GENERAL EYE: appearance normal, both eyes and all related structures ALIGNMENT: Yes alignment normal PERIORBITAL: periorbital findings normal CONJUNCTIVA: Yes conjunctivae normal PUPIL: Yes Equal, round and reactive pupils present Neck/C-Spine: COMMON NORMALS: full ROM GENERAL: Yes normal visual inspection Lymph: LYMPHATIC: no lymphadenopathy noted Chest: COMMONS NORMALS: normal inspection of the chest Breast/axilla inspection: Yes no chest deformity, asymmetry, normal contours, no nodules, masses, tenderness Resp: COMMON NORMALS: normal respiratory effort, No retractions, No use of accessory muscles and clear to auscultation bilaterally EFFORT & INSPECTION: Yes able to speak in complete sentences and Yes symmetric chest movement AUSCULTATION: clear to auscultation bilaterally Cardio: COMMON NORMALS: regular rate, regular rhythm and Peripheral pulses 2+ throughout RATE: regular rate RHYTHM: regular rhythm PERIPHERAL PULSES: Peripheral pulses 2+ throughout GI: COMMON NORMALS: Normal to inspection, nondistended, normoactive bowel sounds present, Soft to palpation, non-tender and No hepatosplenomegaly present INSPECTION: Yes normal to inspection AUSCULTATION: Yes normoactive bowel sounds PALPATION: Yes Soft to palpation and Yes No hepatosplenomegaly present RECTAL EXAM: deferred Extremity: COMMON NORMALS: normal to inspection GENERAL: Yes normal exam except as noted Neuro: COMMON NORMALS: patient oriented x3 SENSORIUM/ORIENTATION: Yes alert, Yes oriented to person, Yes oriented to place and Yes oriented to time CRANIAL NERVES: Yes CN normal except as noted Psych: COMMON NORMALS: mental status grossly normal, Normal thought process present, cooperative, activity/motor behavior normal, denies homicidal ideation and denies suicidal ideation THOUGHT PROCESS: Normal thought process present Skin: COMMON NORMALS: no rashes or lesions noted, no wounds and turgor normal GENERAL SKIN EXAM: no rashes or lesions noted and turgor normal Course Vital Signs: Vital signs: Vital Signs Temperature 98.0 F 12/17/24 17:53 Pulse Rate 78 12/17/24 19:19 Respiratory Rate 16 12/17/24 19:19 Blood Pressure 122/85 12/17/24 20:20 Pulse Oximetry 98 12/17/24 19:19 Oxygen Delivery Me thod Room Air 12/17/24 17:53 MDM - Chest Pain Medical Decision Making Mary Pedro is a 39-year-old female that presents to the emergency department with chest pain and shortness of breath. Onset of symptoms was Saturday. Heart score 1 point. This was for her hypertensive disease and obesity. She described it as sternal chest pain but does not radiate. She underwent laboratory evaluation included CBC, CMP, troponin series, BNP. Laboratory study was unremarkable. She underwent a chest x-ray which revealed no acute findings. She underwent EKGs that revealed sinus rhythm. Her initial EKG showed a sinus rhythm with a rate of 71 beats a minute and a QTc of 400. Subsequent EKG is unchanged. Patient had a long discussion about her hypertension and managing her symptoms. We also talked about other possible differentials that could have caused her symptoms. She is going to follow-up with her primary care doctor. She has a follow-up appointment tomorrow We have asked the correctional case records supervisor to assist in setting up a Holter monitor. Patient is agreeable with plan and all questions answered Lab Data 12/17/24 18:26 12/17/24 18:26 Radiology Impressions Chest X-Ray 12/17/24 18:03 IMPRESSION: No acute findings. Laboratory Results WBC 4.88 10^3/uL (3.29-11.43) 12/17/24 18: RBC 3.55 10^6/uL (3.85-5.65) L 12/17/24 18: Hgb 10.60 g/dL (11.27-16.99) L 12/17/24 18: Hct 31.9 % (36-47) L 12/17/24 18: MCV 89.9 fl (85-98) 12/17/24 18: MCH 29.9 pg (27-33) 12/17/24 18: MCHC 33.2 g/dL (30-55) 12/17/24 18: RDW 12.1 % (12.1-15.1) 12/17/24 18: Plt Count 426 10^3/cmm (157-399) H 12/17/24 18:26 MPV 9.2 fL (7.4-10.4) 12/17/24 18:26 Neut % (Auto) 39.8 % 12/17/24 18:26 Lymph % (Auto) 49.6 % 12/17/24 18:26 [place] % (Auto) 8.2 % 12/17/24 18:26 Eos % (Auto) 1.4 % 12/17/24 18:26 Baso % (Auto) 0.8 % 12/17/24 18:26 Neut # (Auto) 1.94 10^3/uL (1.8-7.7) 12/17/24 18:26 Lymph # (Auto) 2.4 10^3/uL (0.8-4.8) 12/17/24 18:26 [place] # (Auto) 0.4 10^3/uL (0.2-0.9) 12/17/24 18: Eos # (Auto) 0.1 10^3/uL (0.0-0.8) 12/17/24 18: Baso # (Auto) 0.0 10^3/uL (0.0-0.1) 12/17/24 18: Nucleated RBC % (auto) 0 % 12/17/24 18: Nucleated RBCs # 0.0 /100WBC 12/17/24 18:26 Sodium 140 mmol/L (136-145) 12/17/24 18: Potassium 4.1 mmol/L (3.5-5.1) 12/17/24 18: Chloride 103 mmol/L (98-107) 12/17/24 18: Carbon Dioxide 25 mmol/L (22-29) 12/17/24 18:26 Anion Gap 16.1 (5-19) 12/17/24 18:26 BUN 12 mg/dL (6-20) 12/17/24 18: Creatinine 0.7 mg/dL (0.5-0.9) 12/17/24 18: GFR Calculation 93.2 mL/min (90-130) 12/17/24 18:26 Glucose 91 mg/dL (65-115) 12/17/24 18:26 Calculated Osmolality 289 mOsm/kg (285-295) 12/17/24 18: Calcium 9.0 mg/dL (8.5-10.5) 12/17/24 18: Total Bilirubin 0.2 mg/dL (0.15-1.2) 12/17/24 18: AST 22 U/L (0-32) 12/17/24 18: ALT 22 U/L (0-33) 12/17/24 18: Alkaline Phosphatase 69 U/L (35-105) 12/17/24 18:26 Troponin T Baseline < 6 ng/L (0-10) 12/17/24 18: Troponin T 120 Minute < 6.0 ng/L (0-10) 12/17/24 20:15 Delta Troponin T 0 ABS# (0-10) 12/17/24 20:15 Total Protein 7.0 g/dL (6.6-8.7) 12/17/24 18: Albumin 4.3 g/dL (3.5-5.2) 12/17/24 18: Globulin 2.7 g/dL (1.3-4.6) 12/17/24 18: Lipase 34 U/L (13-60) 12/17/24 18: Urine Color Yellow (Yellow) 12/17/24 20:30 Urine Appearance Clear (CLEAR) 12/17/24 20: Urine pH 6.5 (5-7) 12/17/24 20:30 Ur Specific [place] 1.012 (1.005-1.030) 12/17/24 20:30 Urine Protein Negative (Negative) 12/17/24 20:30 Urine Glucose (UA) Negative (Normal) 12/17/24 20:30 Urine Ketones Negative (Negative) 12/17/24 20: Urine Blood Negative (Negative) 12/17/24 20:30 Urine Nitrate Negative (Negative) 12/17/24 20:30 Urine Bilirubin Negative (Negative) 12/17/24 20:30 Urine Urobilinogen 1.0 mg/dL (Negative) 12/17/24 20:30 Ur Leukocyte Esterase Negative (Negative) 12/17/24 20:30 Urine RBC 0-2 /hpf (0-2) 12/17/24 20:30 Urine WBC 0-5 /hpf (0-5) 12/17/24 20:30 Ur Squamous Epith Cells 6-10 /hpf (0-5) 12/17/24 20:30 Amorphous Sediment Not Reportable 12/17/24 20:30 Urine Bacteria 2+ /hpf (NONE) H 12/17/24 20:30 Hyaline Casts 2.05 /lpf 12/17/24 20:30 All radiology interpretation(s) finalized by discharge Discharge Plan Discharge Patient Disposition: Home Clinical Impression: Chest pain, BMI 30.0-30.9,adult Condition: Stable Prescriptions: No Action azelastine 137 mcg (0.1 %) aerosol,spray 1 spray intranasal BID Rx Instructions: administer into each nostril ascorbic acid (vitamin C) 500 mg capsule PO Nextstellis 3 mg- 14.2 mg (28) tablet See Rx Instructions PO .COMPLEX Rx Instructions: take 1-PINK tablet once daily for 24 days/days 1-24 of cycle; take 1-WHITE tablet once daily for 4 days/days - of cycle. PO ondansetron 8 mg tablet,disintegrating 8 mg PO Q8H PRN (Reason: nausea and vomiting) 5 Days Qty: 15 0RF lisinopril 20 mg tablet 20 mg PO DAILY Nextstellis 3 mg- 14.2 mg (28) tablet See Rx Instructions PO .COMPLEX Qty: 28 3RF Rx Instructions: take 1-PINK tablet once daily for 24 days/days 1-24 of cycle; take 1-WHITE tablet once daily for 4 days/days - of cycle. PO estradiol 0.01 % (0.1 mg/gram) cream 1 g vaginal DAILY Qty: 42.5 3RF Rx Instructions: twice daily for 14 days and then apply twice weekly albuterol sulfate [Ventolin HFA] 90 mcg/actuation HFA aerosol inhaler See Rx Instructions .ROUTE .COMPLEX Qty: 18 0RF Dose Instruction: INHALE 2 PUFFS BY MOUTH EVERY 6 HOURS NEEDED FOR SHORTNESS OF BREATH AND FOR WHEEZING Rx Instructions: INHALE 2 PUFFS BY MOUTH EVERY 6 HOURS NEEDED FOR SHORTNESS OF BREATH AND FOR WHEEZING levocetirizine 5 mg tablet 5 mg PO DAILY Qty: 90 3RF fluticasone propionate 50 mcg/actuation spray,suspension See Rx Instructions .ROUTE .COMPLEX Qty: 16 0RF Dose Instruction: Use 1 spray(s) in each nostril twice daily Rx Instructions: Use 1 spray(s) in each nostril twice daily levothyroxine 25 mcg tablet See Rx Instructions .ROUTE .COMPLEX Qty: 30 0RF Dose Instruction: TAKE 1 TABLET BY MOUTH ONCE DAILY 1 HOUR BEFORE BREAKFAST OR OTHER MEDICATIONS Rx Instructions: TAKE 1 TABLET BY MOUTH ONCE DAILY 1 HOUR BEFORE BREAKFAST OR OTHER MEDICATIONS iron 325 mg (65 mg iron) Tablet 325 mg PO DAILY hydrocodone-acetaminophen 5-325 mg tablet 1 tab PO Q6H PRN (Reason: pain) Qty: 14 0RF Naprosyn 500 mg tablet 500 mg PO BID PRN (Reason: pain) Qty: 20 0RF Discharge Orders: Discharge ED (Routine); Ordered 12/17/24 Ordered By: Jus Greer Referrals: Tomy Evans MD [Primary Care Provider, Family Practice] Discharge Diet: Advance as tolerated Discharge Activity: Resume usual activity Patient Instructions: Chest Pain (DC), Pain Management, Patient Portal & Jesus Instructions Activity Restrictions/Additional Instructions: Please follow-up with your primary care doctor Please return to the emergency department for new concerning or worsening symptoms We are going to have the correctional case records supervisor assist in setting up a Holter monitor. Print Language: Divehi Coding Level of Care Code ED Import/Export Agent for Andrae Gonzalez
[2024-12-17 18:30] VITALS: BP 144/76; PULSE 84; RESP 12; O2SAT 98
[2024-12-17 18:54] LABS: Hematocrit 31.9 % (36-47); Hemoglobin 10.60 g/dL (11.27-16.99); Mean Corpuscular HGB Conc 33.2 g/dL (30-55); Mean Corpuscular Hemoglobin 29.9 pg (27-33); Mean Corpuscular Volume 89.9 fl (85-98); Nucleated Red Blood Cells % 0 %; Platelet Count 426 10^3/cmm (157-399); Red Blood Count 3.55 10^6/uL (3.85-5.65); White Blood Count 4.88 10^3/uL (3.29-11.43)
[2024-12-17 19:11] LABS: Troponin(5th) Baseline < 6 ng/L (0-10)
[2024-12-17 19:14] LABS: Alanine Aminotransferase 22 U/L (0-33); Albumin Level 4.3 g/dL (3.5-5.2); Alkaline Phosphatase 69 U/L (35-105); Anion Gap 16.1 (5-19); Aspartate Amino Transferase 22 U/L (0-32); Blood Urea Nitrogen 12 mg/dL (6-20); Calcium 9.0 mg/dL (8.5-10.5); Carbon Dioxide 25 mmol/L (22-29); Chloride 103 mmol/L (98-107); Creatinine Clr Calc Pharmacy 124.7673; Globulin 2.7 g/dL (1.3-4.6); Glucose 91 mg/dL (65-115); Lipase 34 U/L (13-60); Osmolality Calculated 289 mOsm/kg (285-295); Potassium 4.1 mmol/L (3.5-5.1); Sodium 140 mmol/L (136-145); Total Protein 7.0 g/dL (6.6-8.7)
[2024-12-17 19:19] VITALS: BP 115/68; PULSE 78; RESP 16; O2SAT 98
--- NOTE | 2024-12-17 20:06 | ECG_ITS ---
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 Measurements Intervals [place] Rate: 71 P: 63 AR: 156 QRS: 64 QRSD: 105 T: 55 QT: 375 QTc: 408 Interpretive Statements SINUS RHYTHM POSSIBLE RIGHT VENTRICULAR CONDUCTION DELAY [RSR (QR) IN V1/V2] Compared to ECG 12/17/2024 17:51:45 Sinus arrhythmia no longer present Electronically Signed On 12-19-2024 08:52:09 CDT by Drew Iyer M.D. [email or web address] [email or web address]
[2024-12-17 20:20] VITALS: BP 122/85
[2024-12-17 20:53] LABS: Troponin 5 2HR < 6.0 ng/L (0-10); Troponin 5 2HR Delta 0 ABS# (0-10)
[2024-12-17 21:23] LABS: Add Urine Microscopic? YES; Glucose Urine UA Negative (Normal); Nitrate Urine Negative (Negative); Specific Gravity, Urine 1.012 (1.005-1.030)
[2024-12-17 21:29] VITALS: BP 138/80; PULSE 75; RESP 16; O2SAT 93
[2024-12-17 21:45] VITALS: BP 145/87; PULSE 80; RESP 16; O2SAT 98
== END 2024-12-17 21:46 | disposition home or self-care (01) ==
PROVIDERS: Emergency Provider Nurse Practitioner; PCP Family Medicine Adult Medicine
DX: R07.9 Chest pain, unspecified (principal); Z68.30 Body mass index [BMI] 30.0-30.9, adult; Z87.891 Personal history of nicotine dependence; I10 Essential (primary) hypertension
CPT/HCPCS: 36415; 71045; 80053; 81001; 83690; 84484; 85025; 93005; 99285

== ENCOUNTER 2024-12-24 14:20 | Emergency (ER) | payer MEDICAID, SELFPAY ==
--- NOTE | 2024-12-24 14:26 | ECG_ITS ---
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
[2024-12-24 14:31] VITALS: BP 118/83; PULSE 86; RESP 20; TEMP 36.9; O2SAT 100
[2024-12-24 15:35] LABS: Hematocrit 35.1 % (36-47); Hemoglobin 11.30 g/dL (11.27-16.99); Mean Corpuscular HGB Conc 32.2 g/dL (30-55); Mean Corpuscular Hemoglobin 28.9 pg (27-33); Mean Corpuscular Volume 89.8 fl (85-98); Nucleated Red Blood Cells % 0 %; Platelet Count 445 10^3/cmm (157-399); Red Blood Count 3.91 10^6/uL (3.85-5.65); White Blood Count 4.47 10^3/uL (3.29-11.43)
[2024-12-24 15:55] LABS: Troponin(5th) Baseline < 6 ng/L (0-10)
[2024-12-24 16:25] LABS: Alanine Aminotransferase 17 U/L (0-33); Albumin Level 4.5 g/dL (3.5-5.2); Alkaline Phosphatase 83 U/L (35-105); Anion Gap 17.5 (5-19); Aspartate Amino Transferase 18 U/L (0-32); Blood Urea Nitrogen 13 mg/dL (6-20); Calcium 9.1 mg/dL (8.5-10.5); Carbon Dioxide 24 mmol/L (22-29); Chloride 100 mmol/L (98-107); Creatinine Clr Calc Pharmacy 109.4421; Globulin 3.1 g/dL (1.3-4.6); Glucose 89 mg/dL (65-115); Osmolality Calculated 284 mOsm/kg (285-295); Potassium 4.5 mmol/L (3.5-5.1); Sodium 137 mmol/L (136-145); Total Protein 7.6 g/dL (6.6-8.7)
--- NOTE | 2024-12-24 17:17 | ECG_ITS ---
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
--- NOTE | 2024-12-24 17:39 | ED_ITS ---
HPI - Chest Pain 2 General: Chief Complaint: Chest Pain Stated Complaint: CP SOB History of Present Illness: Patient is a 39-year-old female without cardiac history reports to the emergency room due to chest pain, heavy in nature/pressure and sternal associated with shortness of breath without cough or sick contact. No nausea or vomiting. No palpitations. This has been occurring for the last month on and off. She was seen here on Saturday, 12/19 and was ruled out. She currently has a cardiac event monitor 48 hours, awaiting event monitor for 21 days. She has not seen cardiology or been referred to cardiology. She has followed up with her primary care physician. Today this occurred while talking to the nurse at her primary care physician's office. Associated symptoms: Reports dyspnea; Deny abdominal pain, fever(s), nausea, palpitations or vomiting Related Data Home Medications ?Medication ?Instructions ?Recorded ?Confirmed ferrous sulfate 325 mg (65 mg 325 mg PO DAILY 08/16/22 11/21/24 iron) tablet (iron) azelastine 137 mcg (0.1 %) nasal 1 spray intranasal BI D 09/27/22 11/21/24 spray lisinopril 20 mg tablet 20 mg PO DAILY 09/09/2410/26 ascorbic acid (vitamin C) 500 mg mg PO 09/15/24 capsule drospirenone 3 mg-estetrol 14.2 mg See Rx Instructions PO .COMPLEX 09/15/24 11/21/24 (28) tablet (Nextstellis) Previous Rx's ?Medication ?Instructions ?Recorded ondansetron 8 mg disintegrating 8 mg PO Q8H PRN nausea and 04/17/23 tablet vomiting 5 days #15 tabs Ventolin HFA 90 mcg/actuation See Rx Instructions .Rou te 07/31/23 aerosol inhaler (albuterol sulfate) .COMPLEX #18 grams levocetirizine 5 mg tablet 5 mg PO DAILY #90 tabs 10/17 hydrocodone 5 mg-acetaminophen 325 1 tab PO Q6H PRN pa in #14 tabs 12/18/23 mg tablet naproxen 500 mg tablet (Naprosyn) 500 mg PO BID PRN pa in #20 tabs 12/18/23 fluticasone propionate 50 See Rx Instructions .Route 0 07/02/24 mcg/actuation nasal .COMPLEX #16 grams spray,suspension levothyroxine 25 mcg tablet See Rx Instructions .Route 07/13/24 .COMPLEX #30 tabs drospirenone 3 mg-estetrol 14.2 mg See Rx Instructions PO .COMPLEX 09/09/24 (28) tablet (Nextstellis) #28 tabs estradiol 0.01% (0.1 mg/gram) 1 g vaginal DAILY #42.5 grams 09/09/24 vaginal cream nitroglycerin 0.4 mg sublingual 0.4 mg sublingual Q5M PRN chest 12/24/24 tablet pain #25 tabs Allergies Allergy/AdvReac Type Severity Reaction Status Date / Time grass pollen Allergy Intermediate rash, itch Verified 09/23/24 08:02 animal dander Allergy ALGY-Difficulty Verified 09/23/24 08:02 Breathing tree and shrub pollen Allergy ALGY-Difficulty Verified 09/23/24 08:02 Breathing Review of Systems 2 General: Reports: 10 or more systems reviewed and unremarkable except in HPI and below Const: Denies: fever(s) or chills Eyes: Denies: change in vision or blurry vision ENMT: Denies: throat pain or uvular edema Card: Reports: chest pain; Denies: palpitations Resp: Reports: dyspnea; Denies: productive cough GI: Denies: abdominal pain, nausea or vomiting : Denies: flank pain or difficulty voiding Musc: Denies: neck pain, back pain or extremity pain Skin/Breast: Denies: skin tenderness Neuro: Denies: headache(s), numbness in extremities or weakness in extremities Psych: Denies: anxiety or depression PFSH ED 2 PFSH: Medical History (Updated 12/24/24 @ 19:16 by FRANCESCA Doe) Atypical squamous cell changes of undetermined significance (ASCUS) on cervical cytology with positive high risk human papilloma virus (HPV) ASCUS, HPV E6/E7+ Hx of abnormal cervical Pap smear LSIL, HPV E6/E7+ ; did not get colposcopy Fatigue due to depression Breakthrough bleeding on Nexplanon Hypertension Hypothyroidism (acquired) BMI 30.0-30.9,adult Asthma due to seasonal allergies Allergic rhinitis due to allergen Surgical History History of colposcopy PAP: ASCUS HPV E6/E7+, no malignancy or dysplasia No history of previous surgery No pertinent past surgical history Family History Mother Hypertension Grandfather Hypertension maternal Stroke maternal Heart disease maternal Grandmother Breast cancer, Onset Age: 84 maternal Denies family history of Colon cancer Ovarian cancer Diabetes Clotting disorder Hyperlipidemia Anesthesia complication Bleeding disorder Uterine cancer Thyroid disease Social History Smoking and tobacco/nicotine status: never used tobacco/nicotine Quit status (tobacco/nicotine): has quit using Year quit tobacco: 2020 Alcohol intake: never Substance/Drug Use: never Physical Exam 2 Const: COMMON NORMALS: no acute distress, average body habitus and patient oriented x3 HENMT: COMMON NORMALS: normocephalic and atraumatic HEAD & SCALP: n ormocephalic and atraumatic THROAT: no uvular edema Neck/C-Spine: COMMON NORMALS: full ROM and no lymphadenopathy Chest: COMMONS NORMALS: normal inspection of the chest and normal palpation of entire chest wall Resp: COMMON NORMALS: normal respiratory effort, No retractions and clear to auscultation bilaterally AUSCULTATION: clear to auscultation bilaterally Cardio: COMMON NORMALS: regular rate, regular rhythm and No murmurs present (Cardio) RATE: regular rate RHYTHM: regular rhythm GI: COMMON NORMALS: Normal to inspection, nondistended, normoactive bowel sounds present, Soft to palpation and non-tender PALPATION: Yes Soft to palpation : COMMON NORMALS: Yes no CVA tenderness BLADDER/KIDNEY EXAM: Yes no CVA tenderness Back/Pelvis: COMMON NORMALS: no CVA tenderness Extremity: COMMON NORMALS: normal to inspection, full ROM and capillary refill normal Neuro: COMMON NORMALS: patient oriented x3 Psych: COMMON NORMALS: mental status grossly normal, Normal thought process present and cooperative THOUGHT PROCESS: Normal thought process present Course 2 Vital Signs: Vital signs: Vital Signs Temperature 98.4 F 12/24/24 14:31 Pulse Rate 75 12/24/24 18:24 Respiratory Rate 16 12/24/24 18:24 Blood Pressure 130/85 12/24/24 18:24 Pulse Oximetry 100 12/24/24 18:24 Oxygen Delivery Me thod Room Air 12/24/24 14:31 MDM - Chest Pain Medical Decision Making Patient is 39-year-old female with on and off chest pain has been going on the last 1 month. She has had visits to the ED with this frustrations well. Today this occurred again, and she was at her primary care physician's office. She has a Holter monitor in place. I have discussed with her to take a baby aspirin daily, and sent nitroglycerin to the pharmacy while there is discernment of ischemic disease or not. I have asked her to call her doctor tomorrow for follow-up, and to schedule a cardiology visit outpatient to determine if there is ischemic disease of concern. Medical Records I reviewed the patient's medical records. Lab Data I reviewed the patient's lab results. 12/24/24 15:26 12/24/24 15:26 Radiology Impressions Chest X-Ray 12/24/24 17:51 IMPRESSION: No acute findings. Laboratory Results WBC 4.47 10^3/uL (3.29-11.43) 12/24/24 15: RBC 3.91 10^6/uL (3.85-5.65) 12/24/24 15:26 Hgb 11.30 g/dL (11.27-16.99) 12/24/24 15: Hct 35.1 % (36-47) L 12/24/24 15:26 MCV 89.8 fl (85-98) 12/24/24 15:26 MCH 28.9 pg (27-33) 12/24/24 15:26 MCHC 32.2 g/dL (30-55) 12/24/24 15:26 RDW 12.0 % (12.1-15.1) L 12/24/24 15:26 Plt Count 445 10^3/cmm (157-399) H 12/24/24 15: MPV 9.1 fL (7.4-10.4) 12/24/24 15:26 Neut % (Auto) 45.9 % 12/24/24 15:26 Lymph % (Auto) 46.3 % 12/24/24 15:26 [place] % (Auto) 5.8 % 12/24/24 15:26 Eos % (Auto) 0.7 % 12/24/24 15: Baso % (Auto) 1.1 % 12/24/24 15:26 Neut # (Auto) 2.05 10^3/uL (1.8-7.7) 12/24/24 15:26 Lymph # (Auto) 2.1 10^3/uL (0.8-4.8) 12/24/24 15:26 [place] # (Auto) 0.3 10^3/uL (0.2-0.9) 12/24/24 15:26 Eos # (Auto) 0.0 10^3/uL (0.0-0.8) 12/24/24 15:26 Baso # (Auto) 0.1 10^3/uL (0.0-0.1) 12/24/24 15: Nucleated RBC % (auto) 0 % 12/24/24 15: Nucleated RBCs # 0.0 /100WBC 12/24/24 15:26 Sodium 137 mmol/L (136-145) 12/24/24 15:26 Potassium 4.5 mmol/L (3.5-5.1) 12/24/24 15: Chloride 100 mmol/L (98-107) 12/24/24 15: Carbon Dioxide 24 mmol/L (22-29) 12/24/24 15:26 Anion Gap 17.5 (5-19) 12/24/24 15:26 BUN 13 mg/dL (6-20) 12/24/24 15: Creatinine 0.8 mg/dL (0.5-0.9) 12/24/24 15:26 GFR Calculation 79.9 mL/min (90-130) L 12/24/24 15:26 Glucose 89 mg/dL (65-115) 12/24/24 15:26 Calculated Osmolality 284 mOsm/kg (285-295) L 12/24/24 15:26 Calcium 9.1 mg/dL (8.5-10.5) 12/24/24 15:26 Total Bilirubin 0.3 mg/dL (0.15-1.2) 12/24/24 15:26 AST 18 U/L (0-32) 12/24/24 15:26 ALT 17 U/L (0-33) 12/24/24 15:26 Alkaline Phosphatase 83 U/L (35-105) 12/24/24 15:26 Troponin T Baseline < 6 ng/L (0-10) 12/24/24 15:26 Troponin T 120 Minute < 6.0 ng/L (0-10) 12/24/24 17:13 Delta Troponin T 0 ABS# (0-10) 12/24/24 17:13 Total Protein 7.6 g/dL (6.6-8.7) 12/24/24 15:26 Albumin 4.5 g/dL (3.5-5.2) 12/24/24 15:26 Globulin 3.1 g/dL (1.3-4.6) 12/24/24 15:26 Influenza A (PCR) Negative (Negative) 12/24/24 18:13 Influenza Type B (PCR) Negative (Negative) 12/24/24 18:13 RSV (PCR) Negative (Negative) 12/24/24 18:13 SARS-CoV-2 (PCR) Negative (Negative) 12/24/24 18:13 All radiology interpretation(s) finalized by discharge ED provider radiology interpretation(s): no acute EKG Data EKG 1: Interpretation: Normal sinus rhythm, normal axis, QTc 396 Discharge Plan Discharge Patient Disposition: Home Clinical Impression: Chest pain Qualifiers: Chest pain type: unspecified Qualified Code(s): R07.9 - Chest pain, unspecified Condition: Stable Prescriptions: New nitroglycerin 0.4 mg tablet, sublingual 0.4 mg sublingual Q5M PRN (Reason: chest pain) Qty: 25 0RF Rx Instructions: do not exceed 3 doses per episode No Action azelastine 137 mcg (0.1 %) aerosol,spray 1 spray intranasal BID Rx Instructions: administer into each nostril ascorbic acid (vitamin C) 500 mg capsule PO Nextstellis 3 mg- 14.2 mg (28) tablet See Rx Instructions PO .COMPLEX Rx Instructions: take 1-PINK tablet once daily for 24 days/days 1-24 of cycle; take 1-WHITE tablet once daily for 4 days/days 25-28 of cycle. PO ondansetron 8 mg tablet,disintegrating 8 mg PO Q8H PRN (Reason: nausea and vomiting) 5 Days Qty: 15 0RF lisinopril 20 mg tablet 20 mg PO DAILY Nextstellis 3 mg- 14.2 mg (28) tablet See Rx Instructions PO .COMPLEX Qty: 28 3RF Rx Instructions: take 1-PINK tablet once daily for 24 days/days 1-24 of cycle; take 1-WHITE tablet once daily for 4 days/days 25-28 of cycle. PO estradiol 0.01 % (0.1 mg/gram) cream 1 g vaginal DAILY Qty: 42.5 3RF Rx Instructions: twice daily for 14 days and then apply twice weekly albuterol sulfate [Ventolin HFA] 90 mcg/actuation HFA aerosol inhaler See Rx Instructions .ROUTE .COMPLEX Qty: 18 0RF Dose Instruction: INHALE 2 PUFFS BY MOUTH EVERY 6 HOURS NEEDED FOR SHORTNESS OF BREATH AND FOR WHEEZING Rx Instructions: INHALE 2 PUFFS BY MOUTH EVERY 6 HOURS NEEDED FOR SHORTNESS OF BREATH AND FOR WHEEZING levocetirizine 5 mg tablet 5 mg PO DAILY Qty: 90 3RF fluticasone propionate 50 mcg/actuation spray,suspension See Rx Instructions .ROUTE .COMPLEX Qty: 16 0RF Dose Instruction: Use 1 spray(s) in each nostril twice daily Rx Instructions: Use 1 spray(s) in each nostril twice daily levothyroxine 25 mcg tablet See Rx Instructions .ROUTE .COMPLEX Qty: 30 0RF Dose Instruction: TAKE 1 TABLET BY MOUTH ONCE DAILY 1 HOUR BEFORE BREAKFAST OR OTHER MEDICATIONS Rx Instructions: TAKE 1 TABLET BY MOUTH ONCE DAILY 1 HOUR BEFORE BREAKFAST OR OTHER MEDICATIONS iron 325 mg (65 mg iron) Tablet 325 mg PO DAILY hydrocodone-acetaminophen 5-325 mg tablet 1 tab PO Q6H PRN (Reason: pain) Qty: 14 0RF Naprosyn 500 mg tablet 500 mg PO BID PRN (Reason: pain) Qty: 20 0RF Discharge Orders: Discharge ED (Routine); Ordered 12/24/24 Ordered By: Arina Donaldson Discharge Diet: Low Salt Discharge Activity: Resume usual activity Patient Instructions: DASH Eating Plan (ED) Activity Restrictions/Additional Instructions: Follow follow a low-salt diet. Take a baby aspirin daily, coated is fine Return to your doctor?call your doctor in the morning to follow-up and possibly have cardiology visit from ER to determine if you do have ischemic disease/blockage disease. As we discussed there are several things that can cause chest pain that are noncardiac. You will need to follow-up with your doctor as discussed, and sort through these if you do not have ischemic disease which is not yet determined as discussed. You will need to turn to the ER if you have ongoing chest pain, shortness of breath. No additional findings were found today however. 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
[2024-12-24 17:47] LABS: Troponin 5 2HR < 6.0 ng/L (0-10); Troponin 5 2HR Delta 0 ABS# (0-10)
--- NOTE | 2024-12-24 17:51 | XRR_ITS ---
PROCEDURE INFORMATION: Exam: XR Chest Exam date and time: 12/24/2024 5:58 PM Age: 39 years old Clinical indication: Chest wall pain; Additional info: Chest pain TECHNIQUE: Imaging protocol: Radiologic exam of the chest. Views: 1 view. COMPARISON: CR (CHEST, ) 12/17/2024 7:29 PM FINDINGS: Lungs: Unremarkable. No consolidation. Pleural spaces: Unremarkable. No pleural effusion. No pneumothorax. Heart/Mediastinum: Unremarkable. No cardiomegaly. Bones/joints: Unremarkable. XR/XR chest 1V portable [id number] IMPRESSION: No acute findings.
[2024-12-24 18:24] VITALS: BP 130/85; PULSE 75; RESP 16; O2SAT 100
[2024-12-24 19:05] LABS: Respiratory Syncytial Virus Ce NEGATIVE (Negative); SARS-CoV-2 PCR NEGATIVE (Negative)
[2024-12-24 19:37] VITALS: BP 115/81; PULSE 76; O2SAT 94
== END 2024-12-24 19:41 | disposition home or self-care (01) ==
PROVIDERS: Family Medicine; Emergency Provider Physician Assistant
DX: R07.9 Chest pain, unspecified (principal); Z11.52 Encounter for screening for COVID-19; Z87.891 Personal history of nicotine dependence; I10 Essential (primary) hypertension
CPT/HCPCS: 36415; 71045; 80053; 84484; 85025; 87637; 93005; 99285; J9999

== ENCOUNTER → 2025-01-06 11:23 | Outpatient (BNVA) | payer MEDICAID, SELFPAY | DX: J02.9 Acute pharyngitis, unspecified (principal) | CPT/HCPCS: 87070; 87071; 87880 ==

== ENCOUNTER 2025-01-19 10:02 | Outpatient (CLI) | payer MEDICAID, SELFPAY ==
[2025-01-19 10:28] VITALS: PULSE 87; RESP 18; O2SAT 98
== END 2025-01-19 10:03 | disposition home or self-care (01) ==
PROVIDERS: PCP Family Medicine; Visit Provider Family Medicine
DX: R06.02 Shortness of breath (principal); J98.8 Other specified respiratory disorders; R94.2 Abnormal results of pulmonary function studies
CPT/HCPCS: 94060; 94729

== ENCOUNTER → 2025-03-19 10:59 | Outpatient (BNVA) | payer MEDICAID, SELFPAY | PROVIDERS: PCP Family Medicine; Visit Provider Internal Medicine Cardiovascular Disease | DX: R07.9 Chest pain, unspecified (principal) | CPT/HCPCS: 93005 ==

== ENCOUNTER 2025-03-22 19:57 | Outpatient (CLI) | payer MEDICAID, SELFPAY | END 2025-03-22 19:58 | disposition home or self-care (01) | LOC: SLEEP 19:58 | PROVIDERS: PCP Family Medicine; Referring Provider Family Medicine; Visit Provider Internal Medicine Pulmonary Disease | DX: R06.83 Snoring (principal); R40.0 Somnolence | CPT/HCPCS: 95810 ==

== ENCOUNTER 2025-03-30 10:00 | Day surgery (SDC) | payer MEDICAID, SELFPAY ==
[2025-03-30] VITALS (16 sets, daily range): BP systolic 107–148; BP diastolic 76–91; PULSE 54–99; RESP 14–21; TEMP 36.3–36.8; O2SAT 95–100; BMI 31.3
--- NOTE | 2025-03-30 01:25 | W.PM.OPSFHP ---
Same Day Surgery H&P Indication for Procedure/HPI DATE OF PROCEDURE: March 30, 2025 CHIEF COMPLAINT/INDICATIONFOR SURGICAL PROCEDURE: severe cervical dysplasia PREOP DIAGNOSIS: severe cervical dysplasia PLANNED PROCEDURE: Operation Date: 03/30/25 11:10 Proposed Procedures p Excision Tissue Cervix Loop Electrode Excision Procedure 06183, D06.9(Not Applicable) - Gary Davidson MD Medications/Allergies* Home Medications ?Medication ?Instructions ?Recorded ?Confirmed ?Type azelastine 137 mcg (0.1 %) nasal 1 spray intranasal BID PRN 09/27/22 03/29/25 History spray allergies hydroxyzine HCl 25 mg tablet 25 mg PO BID PRN Anxiety 01/06/25 03/29/25 History fluticasone 250 mcg-salmeterol 50 1 inh inhalation BID 03/19/25 03/29/25 History mcg/dose blistr powdr for inhalation (Advair Diskus) lisinopril 20 1 tab PO DAILY 03/19/25 03/29/25 History mg-hydrochlorothiazide 25 mg tablet loratadine 10 mg tablet (Allergy 10 mg PO DAILY PRN allergies 03/19/25 03/29/25 History Relief (loratadine)) albuterol sulfate 90 mcg/actuation 2 puff inhalation Q6H 03/29/25 03/29/25 History aerosol inhaler (Ventolin HFA) drospirenone 3 mg-estetrol 14.2 mg 1 tab PO DAILY 03/29/25 03/29/25 History (28) tablet (Nextstellis) fluticasone propionate 50 1 spray intranasal BID 03/29/25 03/29/25 History mcg/actuation nasal spray,suspension levocetirizine 5 mg tablet 5 mg PO DAILY PRN allergies 03/29/25 03/29/25 History levothyroxine 25 mcg tablet 25 mcg PO DAILY 03/29/25 03/29/25 History Allergies/Adverse Reactions Allergy/AdvReac Type Severity Reaction Status Date / Time grass pollen Allergy Intermediate rash, itch Verified 03/26/25 10:46 animal dander Allergy ALGY-Difficulty Verified 03/26/25 10:46 Breathing tree and shrub pollen Allergy ALGY-Difficulty Verified 03/26/25 10:46 Breathing Pertinent History/Comorbid Conditions* Medical History (Updated 03/23/25 @ 11:55 by Marquis Mijares DPM) Atypical squamous cell changes of undetermined significance (ASCUS) on cervical cytology with positive high risk human papilloma virus (HPV) ASCUS, HPV E6/E7+ Hx of abnormal cervical Pap smear LSIL, HPV E6/E7+ ; did not get colposcopy Fatigue due to depression Breakthrough bleeding on Nexplanon Hypertension Hypothyroidism (acquired) BMI 30.0-30.9,adult Asthma due to seasonal allergies Allergic rhinitis due to allergen Surgical History (Updated 09/09/24 @ 14:00 by Ruth Borrero NP) History of colposcopy PAP: ASCUS HPV E6/E7+, no malignancy or dysplasia No history of previous surgery No pertinent past surgical history Family History (Updated 11/15/20 @ 15:07 by Abby Fields RN) Heart disease Grandfather maternal Breast cancer Grandmother, Onset Age: 84 maternal Hypertension Mother Grandfather maternal Stroke Grandfather maternal Denies family history of Colon cancer Ovarian cancer Diabetes Clotting disorder Hyperlipidemia Anesthesia complication Bleeding disorder Uterine cancer Thyroid disease Social History Smoking and tobacco/nicotine status: never used tobacco/nicotine Quit status (tobacco/nicotine): has quit using Year quit tobacco: 2019 Alcohol intake: never Substance/Drug Use: never Pertinent Exam Findings alert, oriented x 3, clear to auscultation bilaterally and regular rate & rhythm Recommendations Surgery/Procedure today Coding Level of Care Code Acute Code for Chg Fwearnestine
--- NOTE | 2025-03-30 10:59 | W.PM.OPSUD ---
Surgery/Procedure H&P Update DATE OF PROCEDURE: March 30, 2025 DATE H&P PERFORMED: 03/30/25 H&P UPDATE INFORMATION: I have reviewed H&P completed within last 30 days, I have examined patient prior to procedure and No changes to prior documentation PREOP DIAGNOSIS: severe cervical dysplasia PLANNED PROCEDURE: Operation Date: 03/30/25 11:10 Proposed Procedures p Excision Tissue Cervix Loop Electrode Excision Procedure 13776, D06.9(Not Applicable) - Gary Davidson MD
[2025-03-30 11:03] LABS: OR HCG Qualitative Urine Negative (Negative)
--- NOTE | 2025-03-30 11:05 | ANES.PREANE2 ---
Pre-Anesthetic Assessment Height/Weight: Height 5 ft 7 in Weight 200 lb Temp Pulse Resp BP Pulse Ox O2 Del Method 98.2 F 86 16 118/87 98 Room Air 03/30/25 10:33 03/30/25 10:33 03/30/25 10:33 03/30/25 10:33 03/30/25 10:33 03/30/25 10:36 Preop Diagnosis: severe cervical dysplasia Operation Date: 03/30/25 11:10 Proposed Procedures p Excision Tissue Cervix Loop Electrode Excision Procedure 85977, D06.9(Not Applicable) - Gary Davidson MD Was Beta Bird taken within 24 hours: N/A Was Clonidine taken within 24 hours: N/A Last intake: Intake Last Liquid Date 03/29/25 Last Liquid Time 23:00 Last Solid Date 03/29/25 Last Solid Time 22:00 Social No alcohol and No tobacco Quit smoking 4 years ago Exam alert, oriented x 3, clear to auscultation bilaterally and regular rate & rhythm Airway Submandibular: within normal limits Cervical ROM: within normal limits Mallampati: Class I Dentition: full Anesthetic Plan ASA status: 3 Anesthesia: General Other: Patient has no anesthesia history NPO since yesterday evening History of hypertension on lisinopril?HCTZ. Taken yesterday History of asthma and seasonal allergies, controlled with meds Prior labs reviewed and acceptable for today EKG showing sinus rhythm METs greater than 4 Plan for general anesthesia with LMA Medications/Allergies Home Medications ?Medication ?Instructions ?Recorded ?Confirmed ?Last Taken ?Type azelastine 137 mcg (0.1 %) nasal 1 spray intranasal BID PRN 09/27/22 03/29/25 Unknown History spray allergies naproxen 500 mg tablet (Naprosyn) 500 mg PO BID PRN pain #20 tabs 12/18/23 03/29/25 Unknown Rx hydroxyzine HCl 25 mg tablet 25 mg PO BID PRN Anxiety 01/06/25 03/29/25 Unknown History fluticasone 250 mcg-salmeterol 50 1 inh inhalation BID 03/19/25 03/29/25 Unknown History mcg/dose blistr powdr for inhalation (Advair Diskus) lisinopril 20 1 tab PO DAILY 03/19/25 03/29/25 03/29/25 History mg-hydrochlorothiazide 25 mg tablet loratadine 10 mg tablet (Allergy 10 mg PO DAILY PRN allergies 03/19/25 03/29/25 Unknown History Relief (loratadine)) amoxicillin 875 mg-potassium 1 tab PO BID 10 days #20 tabs 03/23/25 03/29/25 03/29/25 Rx clavulanate 125 mg tablet albuterol sulfate 90 mcg/actuation 2 puff inhalation Q6H 03/29/25 03/29/25 Unknown History aerosol inhaler (Ventolin HFA) drospirenone 3 mg-estetrol 14.2 mg 1 tab PO DAILY 03/29/25 03/29/25 03/29/25 History (28) tablet (Nextstellis) fluticasone propionate 50 1 spray intranasal BID 03/29/25 03/29/25 03/29/25 History mcg/actuation nasal spray,suspension levocetirizine 5 mg tablet 5 mg PO DAILY PRN allergies 03/29/25 03/29/25 Unknown History levothyroxine 25 mcg tablet 25 mcg PO DAILY 03/29/25 03/29/25 03/30/25 History Allergies Allergy/AdvReac Type Severity Reaction Status Date / Time grass pollen Allergy Intermediate rash, itch Verified 03/26/25 10:46 animal dander Allergy ALGY-Difficulty Verified 03/26/25 10:46 Breathing tree and shrub pollen Allergy ALGY-Difficulty Verified 03/26/25 10:46 Breathing PFSH Anesthesia Medical History Atypical squamous cell changes of undetermined significance (ASCUS) on cervical cytology with positive high risk human papilloma virus (HPV) ASCUS, HPV E6/E7+ Hx of abnormal cervical Pap smear LSIL, HPV E6/E7+ ; did not get colposcopy Fatigue due to depression Breakthrough bleeding on Nexplanon Hypertension Hypothyroidism (acquired) BMI 30.0-30.9,adult Asthma due to seasonal allergies Allergic rhinitis due to allergen Surgical History History of colposcopy PAP: ASCUS HPV E6/E7+, no malignancy or dysplasia No history of previous surgery No pertinent past surgical history Family History Mother Hypertension Grandfather Hypertension maternal Stroke maternal Heart disease maternal Grandmother Breast cancer, Onset Age: 84 maternal Denies family history of Colon cancer Ovarian cancer Diabetes Clotting disorder Hyperlipidemia Anesthesia complication Bleeding disorder Uterine cancer Thyroid disease Social History Smoking and tobacco/nicotine status: never used tobacco/nicotine Quit status (tobacco/nicotine): has quit using Year quit tobacco: 2020 Alcohol intake: never Substance/Drug Use: never Female Reproductive History Date of last menstrual period: 03/29/25 Data Anesthesia Cardiac Studies: Holter Monitor 12/25/24
--- NOTE | 2025-03-30 12:20 | PM.OP ---
Operative Report Date of procedure: March 30, 2025 Pre-op diagnosis: severe cervical dysplasia Post-op diagnosis: same Procedure done: Electrosurgical loop excision of the cervix Implants: none Specimens removed/disposition: cervical tissue Surgeon: Gary Davidson MD Anesthesia: MAC Estimated blood loss (mL): 5 Complications: none Condition: stable Disposition: PACU Brief History: 40 y.o. with severe cervical dysplasia Procedure: The patient was taken to the operating room and placed supine on the table. MAC anesthesia was induced. The patient was placed in dorsolithotomy position. The patient was prepped and draped in the usual sterile fashion. A bivalve speculum was placed in the vagina. The anterior lip of the cervix was grasped with a single toothed tenaculum. The cervix was then infiltrated at the cervicovaginal junction with 20 U of vasopressin to decrease bleeding. Electrosurgical loop excision of the cervix was done to a depth of approximately 5 mm. Bleeding from the posterior cervix was controlled with Monsel?s solution. Excellent hemostasis was noted. All instruments were then removed. The patient was placed supine, awakened, and taken to the recovery room. Postoperative condition: stable EBL: less than 5 cc Complications: none Sponge and instrument counts were correct x two
--- NOTE | 2025-03-30 13:06 | ANE.PACU2 ---
Inpatient post-anesthesia follow up: Airway intact: Yes Vital signs: Temperature 97.8 F Pulse Rate 61 Respiratory Rate 14 Blood Pressure 120/80 Pulse Oximetry 97 Oxygen Delivery Me thod Room Air Oxygen Flow Rate Fraction of Inspir ed Oxygen Hydration adequate: Yes Nausea and vomiting: No Pain level: 1 Mental status: Baseline
[2025-03-30] MEDS: fentaNYL 50 mcg/mL INJ 2mL IVP (13:16)
== END 2025-03-30 14:20 | disposition home or self-care (01) ==
PROVIDERS: Student in an Organized Health Care Education/Training Program; PCP Family Medicine; Visit Provider Obstetrics & Gynecology
PROC: (CPT 57522; principal; 2025-03-30 11:10)
DX: D06.9 Carcinoma in situ of cervix, unspecified (principal); I10 Essential (primary) hypertension; E03.9 Hypothyroidism, unspecified; Z87.891 Personal history of nicotine dependence; J45.998 Other asthma
CPT/HCPCS: 57522; 81025; 88307; J1100; J1885; J2250; J2405; J2704; J3010; J3490; J7030; J9999

== ENCOUNTER 2025-04-04 21:21 | Emergency (ER) | payer MEDICAID, SELFPAY ==
[2025-04-04 21:30] VITALS: BP 167/91; PULSE 76; RESP 20; TEMP 36.5; O2SAT 100; BMI 31.3
--- NOTE | 2025-04-04 21:35 | ECG_ITS ---
[facility] Medical Test Date: 2025-04-04 Pat Name: Mary Pedro Department: Room: Gender: Female Complex Care Nurse Practitioner: : 1985 Requested By: Pasquale Rowe Order Number: [id number] Moran MD: Barbara Springer M.D. Measurements Intervals [place] Rate: 68 P: 61 IN: 154 QRS: 29 QRSD: 101 T: 28 QT: 382 QTc: 407 Interpretive Statements SINUS RHYTHM POSSIBLE RIGHT VENTRICULAR CONDUCTION DELAY [RSR (QR) IN V1/V2] Compared to ECG 03/19/2025 11:21:11 No significant changes Electronically Signed On 04-05-2025 18:13:41 [employer]OCIATE by Barbara Springer M.D. [id number]
--- NOTE | 2025-04-04 21:44 | XRR_ITS ---
PROCEDURE INFORMATION: Exam: XR Chest Exam date and time: 04/04/2025 9:50 PM Age: 40 years old Clinical indication: Chest pressure; C/O chest pain; Additional info: Cp TECHNIQUE: Imaging protocol: Radiologic exam of the chest. Views: 1 view. COMPARISON: CR XR chest 1V portable [id number] 12/24/2024 5:58 PM FINDINGS: Lungs: Vague opacity present left lower lobe atelectasis or pneumonia could be considered correlate and follow-up as indicated. Pleural spaces: Unremarkable. No pleural effusion. No pneumothorax. Heart/Mediastinum: Unremarkable. No cardiomegaly. Bones/joints: Unremarkable. XR/XR chest 1V portable [id number] IMPRESSION: Vague opacity left lower lobe nonspecific atelectasis or pneumonia could be considered No pneumothorax seen No consolidation or significant pleural effusion
--- NOTE | 2025-04-04 21:44 | CTR_ITS ---
PROCEDURE INFORMATION: Exam: CT Head Without Contrast Exam date and time: 04/04/2025 9:58 PM Age: 40 years old Clinical indication: Pain; Headache; SCHMITT with hypertension TECHNIQUE: Imaging protocol: Computed tomography of the head without contrast. Radiation optimization: All CT scans at this facility use at least one of these dose optimization techniques: automated exposure control; mA and/or kV adjustment per patient size (includes targeted exams where dose is matched to clinical indication); or iterative reconstruction. COMPARISON: CT head wo con* [id number] 07/29/2018 5:41 PM RADIATION DOSE METRICS: Total DLP (mGy-cm): 1028.04 FINDINGS: Brain: No hemorrhage, no periventricular white matter disease. No mass effect. Basal cisterns are patent. Cerebral ventricles: No ventriculomegaly. Paranasal sinuses: No significant air-fluid levels noted in the visualized sinuses. Mastoid air cells: Mastoid air cells are aerated with no effusions. Bones: No acute osseous abnormality. No acute osseous abnormality. Soft tissues: Unremarkable. CT/CT head wo con* [id number] IMPRESSION: No acute intracranial abnormality.
--- NOTE | 2025-04-04 21:54 | ED_ITS ---
HPI - Headache 2 General: Chief Complaint: Headache Stated Complaint: Headache\BP High Time Seen by Provider: 04/04/25 21:37 History of Present Illness: Patient is a 40-year-old female presenting with severe headache described as like somebody's hitting me with a hammer localized to the middle of her forehead. She also reports abdominal pain, back pain, and intermittent chest pain that comes and goes. Patient states she feels cold ( freezing ) and has nausea but denies vomiting. She reports taking Ondansetron earlier for nausea. The patient has been non-adherent with her blood pressure medication for the past few days. She typically experiences headaches when her blood pressure is elevated. Blood pressure readings during the visit showed initial reading of 144/97 mmHg, which increased to 161/97 mmHg. Patient reports significant recent stressors including multiple medical procedures and family obligations. She is scheduled for a stress test tomorrow. Patient reports being awake for approximately 24 hours due to travel and inability to sleep in the car. Related Data Home Medications ?Medication ?Instructions ?Recorded ?Confirmed azelastine 137 mcg (0.1 %) nasal 1 spray intranasal BI D PRN 09/27/22 04/01/25 spray allergies hydroxyzine HCl 25 mg tablet 25 mg PO BID PRN Anxiety 01/06/25 04/01/25 fluticasone 250 mcg-salmeterol 50 1 inh inhalation BID 03/19/25 04/01/25 mcg/dose blistr powdr for inhalation (Advair Diskus) lisinopril 20 1 tab PO DAILY 03/19/2511/18 mg-hydrochlorothiazide 25 mg tablet loratadine 10 mg tablet (Allergy 10 mg PO DAILY PRN al aniketgies 03/19/25 04/01/25 Relief (loratadine)) albuterol sulfate 90 mcg/actuation 2 puff inhalation Q 6H 03/29/25 04/01/25 aerosol inhaler (Ventolin HFA) drospirenone 3 mg-estetrol 14.2 mg 1 tab PO DAILY 08/1804/01/25 (28) tablet (Nextstellis) fluticasone propionate 50 1 spray intranasal BID 03/2904/01/25 mcg/actuation nasal spray,suspension levocetirizine 5 mg tablet 5 mg PO DAILY PRN allergies 03/29/25 04/01/25 levothyroxine 25 mcg tablet 25 mcg PO DAILY 03/29/25 1 06/01/24 Previous Rx's ?Medication ?Instructions ?Recorded naproxen 500 mg tablet (Naprosyn) 500 mg PO BID PRN pa in #20 tabs 12/18/23 amoxicillin 875 mg-potassium 1 tab PO BID 10 days #20 tabs 03/23/25 clavulanate 125 mg tablet oxycodone-acetaminophen 5 mg-325 1 tab PO Q8H PRN pain 3 days #14 03/31/25 mg tablet (Percocet) tabs Allergies Allergy/AdvReac Type Severity Reaction Status Date / Time grass pollen Allergy Intermediate rash, itch Verified 04/01/25 10:27 animal dander Allergy ALGY-Difficulty Verified 04/01/25 10:27 Breathing tree and shrub pollen Allergy ALGY-Difficulty Verified 04/01/25 10:27 Breathing PFSH ED 2 PFSH: Medical History (Updated 04/04/25 @ 23:30 by Pasquale Vizcaino DO) Atypical squamous cell changes of undetermined significance (ASCUS) on cervical cytology with positive high risk human papilloma virus (HPV) ASCUS, HPV E6/E7+ Hx of abnormal cervical Pap smear LSIL, HPV E6/E7+ ; did not get colposcopy Fatigue due to depression Breakthrough bleeding on Nexplanon Hypertension Hypothyroidism (acquired) BMI 30.0-30.9,adult Asthma due to seasonal allergies Allergic rhinitis due to allergen Surgical History History of colposcopy PAP: ASCUS HPV E6/E7+, no malignancy or dysplasia No history of previous surgery No pertinent past surgical history Family History Mother Hypertension Grandfather Hypertension maternal Stroke maternal Heart disease maternal Grandmother Breast cancer, Onset Age: 84 maternal Denies family history of Colon cancer Ovarian cancer Diabetes Clotting disorder Hyperlipidemia Anesthesia complication Bleeding disorder Uterine cancer Thyroid disease Social History (Updated 04/01/25 @ 10:28 by Jose Cano CNA) Smoking and tobacco/nicotine status: former use of tobacco/nicotine Quit status (tobacco/nicotine): has quit using Year quit tobacco: 2020 Alcohol intake: never Substance/Drug Use: never Physical Exam 2 Const: GENERAL APPEARANCE: cooperative; not frail appearing HENMT: COMMON NORMALS: normocephalic, atraumatic and Normal external nose present HEAD & SCALP: normocephalic and atraumatic FACE & SINUS: normal facial exam and face symmetric NOSE: Normal external nose present Eye: COMMON NORMALS: Equal, round and reactive pupils present and EOMs intact bilaterally PUPIL: Yes Equal, round and reactive pupils present Neck/C-Spine: GENERAL: Yes trachea midline Chest: CHEST: Yes Symmetrical chest wall rise Resp: COMMON NORMALS: normal respiratory effort, No retractions, No use of accessory muscles and clear to auscultation bilaterally AUSCULTATION: clear to auscultation bilaterally Cardio: COMMON NORMALS: regular rate and regular rhythm RATE: regular rate RHYTHM: regular rhythm GI: COMMON NORMALS: Normal to inspection, nondistended, normoactive bowel sounds present Extremity: COMMON NORMALS: no pedal edema Neuro: [place]DY COMA SCALE: document GCS findings [place] coma scale eye opening: Spontaneous [place] coma scale verbal response: Orientated [place] coma scale motor response: Obey commands [place] coma scale total score: 15 S ENSORY EXAM: Yes extremities (intact) Psych: COMMON NORMALS: speech normal SPEECH: Yes normal speech Skin: COMMON NORMALS: no rashes or lesions noted GENERAL SKIN EXAM: no rashes or lesions noted Course 2 Vital Signs: Vital signs: Vital Signs Temperature 97.7 F 04/04/25 21:30 Pulse Rate 75 04/04/25 22:12 Respiratory Rate 20 H 04/04/25 22:42 Blood Pressure 105/67 04/04/25 23:24 Pulse Oximetry 98 04/04/25 23:24 Oxygen Delivery Me thod Room Air 04/04/25 23:24 MDM - Headache Medical Decision Making Patient in pain on exam. She is in no pain currently after medications for headache. Blood pressure was originally 167/91. Now normotensive. Other vitals are stable. CBC is not remarkable. BMP is not remarkable. Troponin is nondetectable. TSH is 1.5. She is non. Chest x-ray shows left lower lobe atelectasis. No consolidation. Head CT is negative. With improvement in her symptoms and blood pressure, she is deemed stable for discharge. She can return for return for worsening symptoms. Lab Data 04/04/25 22:53 04/04/25 22:53 Radiology Impressions Chest X-Ray 04/04/25 21:44 IMPRESSION: Vague opacity left lower lobe nonspecific atelectasis or pneumonia could be considered No pneumothorax seen No consolidation or significant pleural effusion Head CT 04/04/25 21:44 IMPRESSION: No acute intracranial abnormality. Laboratory Results WBC 8.21 10^3/uL (3.29-11.43) 04/04/25 22:53 RBC 3.92 10^6/uL (3.85-5.65) 04/04/25 22:53 Hgb 11.40 g/dL (11.27-16.99) 04/04/25 22:53 Hct 34.7 % (36-47) L 04/04/25 22:53 MCV 88.5 fl (85-98) 04/04/25 22:53 MCH 29.1 pg (27-33) 04/04/25 22:53 MCHC 32.9 g/dL (30-55) 04/04/25 22:53 RDW 11.9 % (12.1-15.1) L 04/04/25 22:53 Plt Count 441 10^3/cmm (157-399) H 04/04/25 22:53 MPV 9.2 fL (7.4-10.4) 04/04/25 22:53 Neut % (Auto) 44.9 % 04/04/25 22:53 Lymph % (Auto) 46.7 % 04/04/25 22:53 [place] % (Auto) 5.8 % 04/04/25 22:53 Eos % (Auto) 1.8 % 04/04/25 22:53 Baso % (Auto) 0.7 % 04/04/25 22:53 Neut # (Auto) 3.68 10^3/uL (1.8-7.7) 04/04/25 22:53 Lymph # (Auto) 3.8 10^3/uL (0.8-4.8) 04/04/25 22:53 [place] # (Auto) 0.5 10^3/uL (0.2-0.9) 04/04/25 22:53 Eos # (Auto) 0.2 10^3/uL (0.0-0.8) 04/04/25 22:53 Baso # (Auto) 0.1 10^3/uL (0.0-0.1) 04/04/25 22:53 Nucleated RBC % (auto) 0 % 04/04/25 22:53 Nucleated RBCs # 0.0 /100WBC 04/04/25 22:53 Sodium 140 mmol/L (136-145) 04/04/25 22:53 Potassium 3.9 mmol/L (3.5-5.1) 04/04/25 22:53 Chloride 103 mmol/L (98-107) 04/04/25 22:53 Carbon Dioxide 25 mmol/L (22-29) 04/04/25 22:53 Anion Gap 15.9 (5-19) 04/04/25 22:53 BUN 11 mg/dL (6-20) 04/04/25 22:53 Creatinine 0.7 mg/dL (0.5-0.9) 04/04/25 22:53 GFR Calculation 92.7 mL/min (90-130) 04/04/25 22:53 Glucose 109 mg/dL (65-115) 04/04/25 22:53 Calculated Osmolality 290 mOsm/kg (285-295) 04/04/25 22:53 Calcium 9.5 mg/dL (8.5-10.5) 04/04/25 22:53 Total Bilirubin 0.2 mg/dL (0.15-1.2) 04/04/25 22:53 AST 20 U/L (0-32) 04/04/25 22:53 ALT 12 U/L (0-33) 04/04/25 22:53 Alkaline Phosphatase 83 U/L (35-105) 04/04/25 22:53 Troponin T Baseline < 6 ng/L (0-10) 04/04/25 22:53 Total Protein 7.2 g/dL (6.6-8.7) 04/04/25 22:53 Albumin 4.5 g/dL (3.5-5.2) 04/04/25 22:53 Globulin 2.7 g/dL (1.3-4.6) 04/04/25 22:53 TSH 1.47 uIU/mL (0.27-4.20) 04/04/25 22:53 HCG, Qual Negative (Negative) 04/04/25 22:53 All radiology interpretation(s) finalized by discharge Discharge Plan Discharge Patient Disposition: Home Clinical Impression: Acute headache Hypertension Qualifiers: Hypertension type: unspecified Qualified Code(s): I10 - Essential (primary) hypertension Condition: Stable Prescriptions: No Action azelastine 137 mcg (0.1 %) aerosol,spray 1 spray intranasal BID PRN (Reason: allergies) Rx Instructions: administer into each nostril hydroxyzine HCl 25 mg tablet 25 mg PO BID PRN (Reason: Anxiety) fluticasone propion-salmeterol [Advair Diskus] 250-50 mcg/dose blister with device 1 inh inhalation BID lisinopril-hydrochlorothiazide 20-25 mg tablet 1 tab PO DAILY loratadine [Allergy Relief (loratadine)] 10 mg tablet 10 mg PO DAILY PRN (Reason: allergies ) amoxicillin-pot clavulanate 875-125 mg tablet 1 tab PO BID 10 Days Qty: 20 0RF oxycodone-acetaminophen [Percocet] 5-325 mg tablet 1 tab PO Q8H PRN (Reason: pain) 3 Days Qty: 14 0RF naproxen [Naprosyn] 500 mg tablet 500 mg PO BID PRN (Reason: pain) Qty: 20 0RF levothyroxine 25 mcg tablet 25 mcg PO DAILY Rx Instructions: TAKE 1 TABLET BY MOUTH ONCE DAILY 1 HOUR BEFORE BREAKFAST OR OTHER MEDICATIONS albuterol sulfate [Ventolin HFA] 90 mcg/actuation HFA aerosol inhaler 2 puff inhalation Q6H Rx Instructions: INHALE 2 PUFFS BY MOUTH EVERY 6 HOURS NEEDED FOR SHORTNESS OF BREATH AND FOR WHEEZING fluticasone propionate 50 mcg/actuation spray,suspension 1 spray intranasal BID Rx Instructions: Use 1 spray(s) in each nostril twice daily Nextstellis 3 mg- 14.2 mg (28) tablet 1 tab PO DAILY Rx Instructions: take 1-PINK tablet once daily for 24 days/days 1-24 of cycle; take 1-WHITE tablet once daily for 4 days/days 25-28 of cycle. PO levocetirizine 5 mg tablet 5 mg PO DAILY PRN (Reason: allergies) Discharge Orders: Discharge ED (Routine); Ordered 04/04/25 Ordered By: Pasquale Vizcaino Referrals: Mir Cid MD [Primary Care Provider, Family Practice] - 1-3 days Patient Instructions: Acute Headache (ED), Hypertension (ED), Opioid Safety, Pain Management, Patient Portal & Jesus Instructions Activity Restrictions/Additional Instructions: You should be able to go ahead with your stress test tomorrow should you feel up to it. Return for worsening headache, vision changes, weakness, speech or language problems, chest discomfort, any other concerning symptoms. Follow-up with your doctor. Print Language: Amharic Coding Level of Care Code ED [employer] Director for Andrae Gonzalez
[2025-04-04 22:12] VITALS: BP 139/103; PULSE 75; O2SAT 100
[2025-04-04 22:42] VITALS: RESP 20
[2025-04-04] MEDS: morphine 4 mg/mL SDV 1 mL IVP (22:42)
[2025-04-04] MEDS: metoclopramide 5 mg/mL SDV 2 mL 10 MG IVP (22:48)
[2025-04-04 22:59] LABS: Hematocrit 34.7 % (36-47); Hemoglobin 11.40 g/dL (11.27-16.99); Mean Corpuscular HGB Conc 32.9 g/dL (30-55); Mean Corpuscular Hemoglobin 29.1 pg (27-33); Mean Corpuscular Volume 88.5 fl (85-98); Nucleated Red Blood Cells % 0 %; Platelet Count 441 10^3/cmm (157-399); Red Blood Count 3.92 10^6/uL (3.85-5.65); White Blood Count 8.21 10^3/uL (3.29-11.43)
[2025-04-04 23:10] LABS: HCG, Serum Qual Negative (Negative)
[2025-04-04 23:20] LABS: Troponin(5th) Baseline < 6 ng/L (0-10)
[2025-04-04 23:24] VITALS: BP 105/67; O2SAT 98
[2025-04-04 23:28] LABS: Alanine Aminotransferase 12 U/L (0-33); Albumin Level 4.5 g/dL (3.5-5.2); Alkaline Phosphatase 83 U/L (35-105); Anion Gap 15.9 (5-19); Aspartate Amino Transferase 20 U/L (0-32); Blood Urea Nitrogen 11 mg/dL (6-20); Calcium 9.5 mg/dL (8.5-10.5); Carbon Dioxide 25 mmol/L (22-29); Chloride 103 mmol/L (98-107); Creatinine Clr Calc Pharmacy 123.5320; Globulin 2.7 g/dL (1.3-4.6); Glucose 109 mg/dL (65-115); Osmolality Calculated 290 mOsm/kg (285-295); Potassium 3.9 mmol/L (3.5-5.1); Sodium 140 mmol/L (136-145); Thyroid Stimulating Hormone 1.47 uIU/mL (0.27-4.20); Total Protein 7.2 g/dL (6.6-8.7)
--- NOTE | 2025-04-04 23:46 | ECG_ITS ---
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 Measurements Intervals [place] Rate: 65 P: 47 SD: 173 QRS: 25 QRSD: 98 T: 12 QT: 410 QTc: 428 Interpretive Statements SINUS RHYTHM POSSIBLE RIGHT VENTRICULAR CONDUCTION DELAY [RSR (QR) IN V1/V2] Compared to ECG 03/19/2025 11:21:11 No significant changes Electronically Signed On 04-05-2025 18:16:40 ELECTRODYNAMICIST by Barbara Springer M.D. [email or web address]
[2025-04-05 00:19] VITALS: BP 96/56; PULSE 71; O2SAT 98
[2025-04-05 00:29] VITALS: BP 96/56
== END 2025-04-05 00:30 | disposition home or self-care (01) ==
PROVIDERS: Emergency Provider Emergency Medicine; PCP Family Medicine
DX: R51.9 Headache, unspecified (principal); I10 Essential (primary) hypertension; Z87.891 Personal history of nicotine dependence
CPT/HCPCS: 70450; 71045; 80053; 84443; 84484; 84703; 85025; 93005; 96374; 96375; 99285; 99291; J1885; J2270; J2765; J9999

== ENCOUNTER 2025-04-05 11:57 | Outpatient (CLI) | payer MEDICAID, SELFPAY ==
--- NOTE | 2025-04-05 | ECG_ITS ---
[email or web address]05 Pat Name: Mary Pedro Department: Room: Gender: Female Test Architect: : 1985 Requested By: Claudio Herring Order Number: [id number] Moran MD: Drew Iyer M.D. Interpretive Statements EXERCISE STRESS TEST EXERCISE DATA: The patient was exercised by Brad protocol. Baseline heart rate was 70 beats per minute. Baseline blood pressure was 137/90 millimeters of mercury. Maximal predicted heart rate was 180 beats per minute. Maximum heart rate achieved was 162, which was 90% of the maximum predicted heart rate. Maximum blood pressure was 203/52 millimeters of mercury. Total exercise time was 6 minutes. Maximum METs achieved was 7. The reason for ending the test was maximal effort achieved. The patient complained of shortness of breath during the stress test, which then resolved at the end of the test. ELECTROCARDIOGRAM: BASELINE: Showed sinus rhythm, normal axis, no significant ST-T changes at the baseline noted. [] EXERCISE: At the peak exercise level, [] No significant ST-T changes suggestive of ischemia noted. [] RECOVERY: During the recovery period, heart rate dropped appropriately. No significant ST-T changes in the recovery suggestive of ischemia noted. [] CONCLUSION: 1. Exercise capacity is fair. 2. Heart rate response was appropriate 3. Blood pressure response was hypertensive 4. Symptoms not suggestive of ischemia. 5. Stress test is not indicative of ischemia. Electronically Signed On 04-20-2025 10:26:43 BAKERY MACHINE MECHANIC by Drew Iyer M.D. [email or web address]
[2025-04-05 12:03] VITALS: BMI 31.3
[2025-04-05 12:46] VITALS: BP 139/79; PULSE 85
== END 2025-04-05 11:58 | disposition home or self-care (01) ==
LOC: CDL 12:01
PROVIDERS: PCP Family Medicine; Visit Provider Internal Medicine Cardiovascular Disease
DX: R94.31 Abnormal electrocardiogram [ECG] [EKG] (principal)
CPT/HCPCS: 93017

== ENCOUNTER → 2025-05-26 10:09 | Outpatient (BNVA) | payer SELFPAY | PROVIDERS: PCP Family Medicine; Visit Provider Nurse Practitioner | DX: R50.9 Fever, unspecified (principal) | CPT/HCPCS: 87400 ==